=== PATIENT | male | born 1930 | race Caucasian/White ===

== ENCOUNTER 2016-09-05 11:22 | Emergency (ER) | payer OTHER ==
--- NOTE | 2016-09-05 12:27 | PDOC ---
History of Present Illness - General Chief Complaint: Injury Stated Complaint: FALL,LEFT KNEE INJURY Time Seen by Provider: 09/05/16 11:42 History Source: Patient Exam Limitations: No Limitations - History of Present Illness Initial Comments: 09/05/16 12:20 Patient is an 86M with a history of L knee replacement, [place], pacemaker and possible afib here today complaining of L knee pain after a fall. The fall was 5 days ago, and patient states that he tripped while trying to walk through a restaurant. He states that he injured his knee then, but was able to continue walking afterwards. He denies any inciting event before falling, including dizziness, shortness of breath, chest pain, diaphoresis and loss of motor function. He is coming in today because he's worried that his left knee is infected after he noticed a yellow discharge. He is still able to walk on the knee today, and denies nausea, vomiting, fevers and chills. He says the knee is painful and warm. He also endorses a headache since the fall, but denies any head wound and is unsure if he hit his head at all. Patient has had a right eye droop since 20 years old. Past History - Past Medical History Allergies/Adverse Reactions: Allergies Allergy/AdvReac Type Severity Reaction Status Date / Time shellfish derived Allergy Verified 09/05/16 11:46 Home Medications: Ambulatory Orders Albuterol Sulfate Inhaler - [Ventolin Hfa Inhaler -] 1 - 2 inh PO PRN PRN Apixaban [Eliquis] 5 mg PO DAILY 09/05/16 Aspirin [ASA -] 81 mg PO DAILY 09/05/16 Benzonatate 100 mg PO PRN PRN 09/05/16 Cholecalciferol (Vitamin D3) [Vitamin D3] 2,000 unit PO DAILY 09/05/16 Febuxostat [Uloric -] 80 mg PO PRN PRN 09/05/16 Furosemide [Lasix] 40 mg PO DAILY 09/05/16 Hydroxychloroquine So4 [Plaquenil -] 100 mg PO DAILY 09/05/16 Losartan Potassium 25 mg PO BID 09/05/16 Metformin HCl 500 mg PO BID 09/05/16 Multivitamins [Tab-A-Vit -] 1 tab PO DAILY 09/05/16 Omeprazole 20 mg PO BID 09/05/16 Potassium Chloride 10 meq PO DAILY 09/05/16 Prednisone 5 mg PO DAILY 09/05/16 Sulfamethoxazole/Trimethoprim [Bactrim Ds -] 1 tab PO BID #14 tablet 09/05/16 Tramadol HCl 50 mg PO QID PRN 09/05/16 Review of Systems - Review of Systems Comments:: 09/05/16 12:28 GENERAL/CONSTITUTIONAL: No fever or chills. No weakness. HEAD, EYES, EARS, NOSE AND THROAT: No change in vision. No cough CARDIOVASCULAR: No chest pain or shortness of breath RESPIRATORY: No cough, or wheezing GASTROINTESTINAL: No nausea, vomiting, diarrhea or constipation. GENITOURINARY: No dysuria, frequency, or change in urination. MUSCULOSKELETAL: L knee pain. Lower back pain. SKIN: No rash NEUROLOGIC: No headache, vertigo, loss of consciousness, or change in strength/ sensation. HEMATOLOGIC/LYMPHATIC: Easy bruising and easy bleeding *Physical Exam - Physical Exam Comments: 09/05/16 12:30 GENERAL: Awake, alert, and fully oriented, in no acute distress HEAD: No signs of trauma, normocephalic, atraumatic EYES: PERRLA, EOMI, sclera anicteric, conjunctiva clear ENT: Auricles normal inspection, hearing grossly normal, nares patent, Moist mucosa NECK: Normal ROM, supple, LUNGS: No distress, speaks full sentences, clear to auscultation bilaterally HEART: Regular rate and rhythm, normal S1 and S2, no murmurs, rubs or gallops, peripheral pulses normal and equal bilaterally. ABDOMEN: Soft, nontender, normoactive bowel sounds. No guarding, no rebound. No masses EXTREMITIES: 4x4cm area of erythema overlying left knee, normal range of motion , tender to palpation, warm to touch NEUROLOGICAL: Right eye droop. Normal speech. SKIN: Warm, Dry, normal turgor, no rashes or lesions noted. ED Treatment Course - LABORATORY CBC & Chemistry Diagram: 09/05/16 12:15 09/05/16 12:15 - RADIOLOGY Radiology Studies Ordered: Category Date Time Status HEAD CT WITHOUT CONTRAST [CT] Stat CT Scan 09/05/16 11:44 Taken KNEE 3 POS-LEFT [RAD] Stat Radiology 09/05/16 11:44 Ordered Medical Decision Making - Medical Decision Making 09/05/16 13:17 Patient is an 86M with history of afib, stroke, and s/p pacemaker here today complaining of a mechanical fall 5 days ago. Vital signs stable and normal. Ultrasound shows cobblestoning around knee with no pockets of fluid. Differential diagnosis includes, but is not limited to: knee sprain, cellulitis and septic joint. Cellulitis is much more likely given patients ability to ambulate with unchanged amount of assistance. 09/05/16 13:51 CBC, CMP normal. X-rays normal. Vital signs normal and stable. Will discharge on bactrim ds BID for 7 days. *DC/Admit/Observation/Transfer Diagnosis at time of Disposition: Cellulitis Qualifiers: Site of cellulitis: extremity Site of cellulitis of extremity: lower extremity Laterality: left Qualified Code(s): L03.116 - Cellulitis of left lower limb - Discharge Dispostion Disposition: HOME Condition at time of disposition: Good Admit: No - Prescriptions Prescriptions: Sulfamethoxazole/Trimethoprim [Bactrim Ds -] 1 tab PO BID #14 tablet - Referrals Referrals: Freddy Tee MD [Staff Physician] - - Patient Instructions Printed Discharge Instructions: DI for Cellulitis -- Adult - Attestations Scribe Attestion: 09/05/16 13:50 I, Dr. Raul Villanueva, attest that this document has been prepared under my direction and personally reviewed by me in its entirety. I further attest, that it accurately reflects all work, treatment, procedures and medical decision -making performed by me.
[2016-09-05 12:45] VITALS: BP 149/83; PULSE 71; TEMP 98.3; BMI 30.9
--- NOTE | 2016-09-05 13:10 | PDOC ---
Attending Attestation - Resident Resident Name: SorenagnieszkaRaul - ED Attending Attestation I have performed the following: I have examined & evaluated the patient, The case was reviewed & discussed with the resident, I agree w/resident's findings & plan, Exceptions are as noted - HPI HPI: 09/05/16 13:07 86 year old male with history of CAD, pacemaker, left knee replacement p/w left knee pain after falling 5 days ago. Hit his left knee. Started to develop left knee redness and swelling. Denies fever. Patient reports able to fully range the left knee. - Physicial Exam PE: 09/05/16 13:10 GENERAL: Awake, alert, and fully oriented, in no acute distress. HEAD: No signs of trauma EYES: PERRLA, EOMI, sclera anicteric, conjunctiva clear ENT: Auricles normal inspection, hearing grossly normal, nares patent, oropharynx clear without exudates. NECK: Normal ROM, supple, no lymphadenopathy, JVD, or masses LUNGS: Breath sounds equal, clear to auscultation bilaterally. No wheezes, and no crackles HEART: Regular rate and rhythm, normal S1 and S2, no murmurs, rubs or gallops ABDOMEN: Soft, nontender, normoactive bowel sounds. No guarding, no rebound. No masses EXTREMITIES: Normal range of motion, no edema. No clubbing or cyanosis. No cords, erythema, or tenderness LLE: FROM Range with no pain or difficulty. Ambulates with assistance. Approximately 4x4 cm erythema overlying left anterior knee with very mild central drainage. NO fluctance appreciated. NO induration. NEUROLOGICAL: Cranial nerves II through XII grossly intact. Normal speech, normal gait SKIN: Warm, Dry, normal turgor, no rashes or lesions noted. - Medical Decision Making 09/05/16 13:11 Vital Signs Temp Pulse Resp BP Pulse Ox 98.3 F 71 20 149/83 95 09/05/16 11:32 09/05/16 11:32 09/05/16 11:32 09/05/16 11:32 09/05/16 11:32 Bedside ultrasound demonstrates no pockets of fluids for drainage. This is much more likely to be cellulitis over the left knee from scraping, and much less likely to be septic joint. Will send labs. Patient will need antibiotics. If workup is negative and demonstrates no significant abnormalities, pt can be discharged with PO antibiotics, likely bactrim. Heart Score/ECG Review #1 ECG reviewed & interpreted by me at: 11:50 09/05/16 14:09 Atrial paced rhythm 70 with prolonged AV conduction, QTC 423 msec, Q wave III, no std/tomas
[2016-09-05 13:21] LABS: INR 1.14 (0.82-1.09); PROTHROMBIN TIME (PATIENT) 12.7 SEC (10.2-13.0)
[2016-09-05 13:25] LABS: ALBUMIN 3.9 g/dl (3.5-5.0); ALK PHOS 50 U/L (32-92); ANION GAP 9 (8-16); BILIRUBIN,TOTAL 0.6 mg/dl (0.2-1.0); CALCIUM 9.4 mg/dl (8.4-10.2); CO2 28 mmol/L (22-28); CREATININE 0.7 mg/dl (0.6-1.3); GLUCOSE,RANDOM 136 mg/dl (74-106); SGOT/AST 18 U/L (10-42); SGPT/ALT 16 U/L (10-40); TOT PROT 6.9 g/dl (6.4-8.3)
[2016-09-05 13:40] LABS: BASOPHIL 0.8 % (0-2.0); EOSINOPHIL 1.6 % (0-4.5); MCH 31.2 pg (25.7-33.7); MEAN CELL VOLUME 89.1 fl (80-96); MEAN PLT VOLUME 11.9 fl (7.5-11.1); NEUTROPHILS 84.3 % (42.8-82.8); PLATELET COUNT 193 K/MM3 (134-434); RDW 12.7 % (11.9-15.9)
[2016-09-05 18:19] LABS: C-REACTIVE PROTEIN 0.4 MG/DL (0.00-0.3); ERYTHROCYTE SEDIMENTATION RATE 5 mm/hr (0-20)
--- NOTE | 2016-09-07 19:10 | EKG ---
Test Reason : Blood Pressure : / mmHG Vent. Rate : 070 BPM Atrial Rate : 070 BPM P-R Int : 312 ms QRS Dur : 098 ms QT Int : 392 ms P-R-T Axes : -07 -10 013 degrees QTc Int : 423 ms Atrial-paced rhythm with prolonged AV conduction SEPTAL INFARCT , AGE UNDETERMINED INFERIOR INFARCT , AGE UNDETERMINED ABNORMAL ECG NO PREVIOUS ECGS AVAILABLE Confirmed by LESLY NOVAK MD ([id number]) on 09/07/2016 7:10:02 PM Referred By: GURDEEP Confirmed By:LESLY NOVAK MD
== END 2016-09-05 14:32 | disposition home or self-care (01) ==
LOC: FER 11:22
DX: L03.116 Cellulitis of left lower limb (principal); I25.2 Old myocardial infarction; Z95.0 Presence of cardiac pacemaker; Z96.652 Presence of left artificial knee joint; Z91.013 Allergy to seafood; Z79.82 Long term (current) use of aspirin; Z79.84 Long term (current) use of oral hypoglycemic drugs
CPT/HCPCS: 36415; 70450-TC; 73562-TC-LT; 80053; 85025; 85610; 85651; 86140; 87040; 87070; 87186; 87205; 93005; 99283-25

== ENCOUNTER 2018-06-12 18:25 | Inpatient (IN) | payer OTHER ==
[2018-06-12] MEDS ORDERED: ACETAMINOPHEN 1000 MG/100 ML VIAL (NON FORMULARY) IVPB ONE (18:49)
[2018-06-12] MEDS ORDERED: ACETAMINOPHEN INJECTION 100 ML IVPB ONE (19:31)
[2018-06-12 19:39] LABS: BASO % 0.4 % (0-2.0); EOS % 0.6 % (0-4.5); HEMATOCRIT 42.4 % (35.4-49); HEMOGLOBIN 14.3 GM/dl (11.7-16.9); LYMPH % 6.9 % (8-40); MCH 32.2 pg (25.7-33.7); MCHC 33.7 g/dl (32.0-35.9); MEAN CELL VOLUME 95.4 fl (80-96); MEAN PLT VOLUME 11.3 fl (7.5-11.1); MONO % 8.1 % (3.8-10.2); PLATELET COUNT 160 K/MM3 (134-434); RBC 4.44 M/mm3 (4.00-5.60); RDW 12.7 % (11.9-15.9); WHITE BLOOD COUNT 13.6 K/mm3 (4.0-10.8)
[2018-06-12 19:55] LABS: ALBUMIN 3.4 g/dl (3.4-5.0); ALK PHOS 50 U/L (45-117); ANION GAP 18 MMOL/L (8-16); BILIRUBIN,TOTAL 0.9 mg/dl (0.2-1); BLOOD UREA NITROGEN 24 mg/dl (7-18); CHLORIDE 100 mmol/L (98-107); CO2 19 mmol/L (21-32); CREATININE 0.8 mg/dl (0.55-1.3); GLUCOSE,RANDOM 155 mg/dl (74-106); SGOT/AST 21 U/L (15-37); SGPT/ALT 17 U/L (13-61); SODIUM 137 mmol/L (136-145); TOT PROT 6.2 g/dl (6.4-8.2)
[2018-06-12 19:57] LABS: ACTIVATED PTT 29.7 SECONDS (25.2-36.5)
--- NOTE | 2018-06-12 19:59 | PDOC ---
Documentation entered by Justa Zazueta SCRIBE, acting as scribe for Barbara Smalls MD. Barbara Smalls MD: This documentation has been prepared by the Marbin holguin Xhesika, SCRIBE, under my direction and personally reviewed by me in its entirety. I confirm that the documentation accurately reflects all work, treatment, procedures, and medical decision making performed by me. History of Present Illness - General Chief Complaint: Pain Stated Complaint: ABD PAIN,CHILLS Time Seen by Provider: 06/12/18 19:08 History Source: Patient, Family Exam Limitations: No Limitations - History of Present Illness Initial Comments: 06/12/18 19:34 The patient is a 87 year old male, from [facility], with a significant past medical history of CAD, Stroke, Prostate Ca, Pneumonia, afib, pacemaker, left knee replacement who presents to the emergency department with daughter for chills. As per daughter, she received a call that the patient was downstairs confused, weak, had chills, cough and abdominal pain. The daughter states that the patient was at his baseline yesterday. As per daughter, the patient fell in the bathroom and sprained his L wrist, however, he is still complaining of L wrist pain today in the ED. The patient denies chest pain, shortness of breath, headache or dizziness. The patient denies fever, nausea, vomit, diarrhea or constipation. The patient denies dysuria, frequency, urgency or hematuria. Allergies:NKDA. Shellfish derived Past surgical history: left knee replacement Social history: None reported Past History - Past Medical History Allergies/Adverse Reactions: Allergies Allergy/AdvReac Type Severity Reaction Status Date / Time shellfish derived Allergy Vomiting Verified 06/12/18 18:30 Home Medications: Ambulatory Orders Apixaban [Eliquis] 5 mg PO DAILY 09/05/16 Aspirin [ASA -] 81 mg PO DAILY 09/05/16 Cholecalciferol (Vitamin D3) [Vitamin D3] 2,000 unit PO DAILY 09/05/16 Furosemide [Lasix] 60 mg PO DAILY 09/05/16 Losartan Potassium 25 mg PO BID 09/05/16 Multivitamins [Tab-A-Vit -] 1 tab PO DAILY 09/05/16 metFORMIN HCL [Metformin HCl] 500 mg PO BID 09/05/16 Cholecalciferol (Vitamin D3) [Vitamin D] 2,000 unit PO DAILY 06/12/18 Metoprolol Succinate 200 mg PO DAILY 06/12/18 Pantoprazole Sodium 40 mg PO DAILY 06/12/18 Spironolactone 25 mg PO DAILY 06/12/18 predniSONE [Deltasone -] 2.5 mg PO DAILY 06/12/18 Cardiac Disorders: Yes COPD: No GI Disorders: Yes (DIVERTICULITIS) HTN: Yes Hypercholesterolemia: Yes Other medical history: STROKE LEFT SIDE 2013, PROSTATE CA 2015, - Surgical History Appendectomy: Yes Cardiac Surgery: Yes (pacemaker) Cholecystectomy: Yes - Suicide/Smoking/Psychosocial Hx Smoking History: Never smoked Have you smoked in the past 12 months: No Information on smoking cessation initiated: No Hx Alcohol Use: No Drug/Substance Use Hx: No Substance Use Type: None Review of Systems - Review of Systems Able to Perform ROS?: Yes Comments:: 06/12/18 19:34 GENERAL/CONSTITUTIONAL:(+) chills. No fever. No weakness. HEAD, EYES, EARS, NOSE AND THROAT: No change in vision. No ear pain or discharge. No sore throat. CARDIOVASCULAR: No chest pain or shortness of breath. RESPIRATORY: (+) chronic cough. No wheezing, or hemoptysis. GASTROINTESTINAL: No nausea, vomiting, diarrhea or constipation. GENITOURINARY: No dysuria, frequency, or change in urination. MUSCULOSKELETAL: (+) Abdominal pain. (+) L wrist pain. No neck or back pain. SKIN: No rash NEUROLOGIC: No headache, vertigo, loss of consciousness, or change in strength/ sensation. ENDOCRINE: No increased thirst. No abnormal weight change. HEMATOLOGIC/LYMPHATIC: No anemia, easy bleeding, or history of blood clots. ALLERGIC/IMMUNOLOGIC: No hives or skin allergy. All Other Systems: Reviewed and Negative *Physical Exam - Vital Signs Last Vital Signs Temp Pulse Resp BP Pulse Ox 102.1 F H 113 H 20 102/66 94 L 06/12/18 18:30 06/12/18 18:30 06/12/18 18:30 06/12/18 18:30 06/12/18 18:30 - Physical Exam Comments: 06/12/18 19:35 GENERAL: Awake, alert, and fully oriented, in no acute distress HEAD: No signs of trauma EYES: PERRLA, EOMI, sclera anicteric, conjunctiva clear ENT: Auricles normal inspection, hearing grossly normal, nares patent, oropharynx clear without exudates. Moist mucosa NECK: Normal ROM, supple, no lymphadenopathy, JVD, or masses LUNGS: Breath sounds equal, clear to auscultation bilaterally. No wheezes, and no crackles HEART: Regular rate and rhythm, normal S1 and S2, no murmurs, rubs or gallops ABDOMEN: Soft, nontender, normoactive bowel sounds. No guarding, no rebound. No masses EXTREMITIES: (+) Trace pitting edema to mid calf bilaterally. Normal range of motion. No clubbing or cyanosis. No cords, erythema, or tenderness NEUROLOGICAL: Cranial nerves II through XII grossly intact. Normal speech. ED Treatment Course - LABORATORY CBC & Chemistry Diagram: 06/12/18 19:15 06/12/18 19:15 - ADDITIONAL ORDERS Additional order review: Laboratory Results 06/12/18 18:45 Urine Color Yellow Urine Appearance Clear Urine pH 5.5 Urine Protein Negative Urine Glucose (UA) Negative Urine Ketones Negative Urine Blood Negative Urine Nitrite Negative Urine Bilirubin Negative Urine Urobilinogen 0.2 Ur Leukocyte Esterase Negative - Medications Given in the ED: ED Medications Discontinued Medications Generic Name Dose Route Start Last Admin Trade Name Bettie PRN Reason Stop Dose Admin Acetaminophen 1,000 mg 06/12/18 18:49 06/12/18 19:35 Ofirmev Injection - IVPB 06/12/18 18:50 1,000 mg ONCE ONE Administration Medical Decision Making - Medical Decision Making 06/12/18 19:57 Pt presents to the ED after an episode of confusion and subjective fever. He is now oriented and without complaints, although he remains febrile and slightly hypoxic. Will do septic work up, give fever control, start antibiotics and admit to medicine for contineud management. *DC/Admit/Observation/Transfer Diagnosis at time of Disposition: Sepsis Qualifiers: Sepsis type: sepsis due to unspecified organism Qualified Code(s): A41.9 - Sepsis, unspecified organism - Discharge Dispostion Condition at time of disposition: Fair Decision to Admit order: Yes - Referrals - Patient Instructions - Post Discharge Activity
[2018-06-12 20:02] LABS: INR 1.53 (0.82-1.09)
[2018-06-12 20:52] LABS: VENOUS PC02 28.9 mmHg (41-51); VENOUS PH 7.51 (7.31-7.41); VENOUS PO2 48.8 mmHg (30-40)
[2018-06-12] MEDS ORDERED: CEFTRIAXONE 1,000 MG in DEXTROSE 5%-WATER - 50 ML IVPB ONE (21:27)
[2018-06-12] MEDS ORDERED: AZITHROMYCIN IVPB 500 MG in DEXTROSE 5%-WATER - 250 ML IVPB ONE (21:27)
[2018-06-12] MEDS ORDERED: SODIUM CHLORIDE 0.9% 500 ML INFUS.BAG IV ONE (21:36)
[2018-06-12] MEDS ORDERED: VANCOMYCIN 1,000 MG in DEXTROSE 5%-WATER - 250 ML IVPB ONE (21:37)
[2018-06-12] MEDS ORDERED: PIPERACILLIN/TAZOB 3.375 GM 3.375 GM in DEXTROSE 5%-WATER - 50 ML IVPB ONE (21:37)
[2018-06-12] MEDS ORDERED: AZITHROMYCIN 500 MG VIAL IVPB ONE (21:38)
[2018-06-12] MEDS ORDERED: cefTRIAXone SODIUM 1 GM VIAL ONE (21:38)
[2018-06-12 21:39] LABS: PLATELET ESTIMATE ADEQUATE
[2018-06-12] MEDS ORDERED: PIPERACILLIN/TAZOBACTAM 3.375 GM VIAL IVPB ONE (21:45)
[2018-06-12] MEDS ORDERED: VANCOMYCIN 1,000 MG VIAL (RESTRICTED TO ID ONLY) ONE (21:45)
--- NOTE | 2018-06-12 23:06 | HP ---
CHIEF COMPLAINT:cough, chills PCP: History obtained from EMR and ER staff as patient is nonverbal HISTORY OF PRESENT ILLNESS: 87 year old male, from [facility] brought in to hospital because he was confused, weak, w/ chills, cough, and abdominal pain as per daughter. As per daughter, the patient fell in the bathroom and injured left wrist. ER course was notable for: (1) zosyn (2) vancomycin (3) IV fluids Recent Travel: unknown PAST MEDICAL HISTORY: AD, Stroke, Prostate Ca, Pneumonia, afib, pacemaker, PAST SURGICAL HISTORY: left knee replacement, pacemaker placement Social History: Smoking:no Alcohol: no Drugs: no Family History: unknown Allergies shellfish derived Allergy (Verified 06/12/18 18:30) Vomiting HOME MEDICATIONS: Home Medications Medication Instructions Recorded Apixaban [Eliquis] 5 mg PO DAILY 09/05/16 Aspirin [ASA -] 81 mg PO DAILY 09/05/16 Cholecalciferol (Vitamin D3) 2,000 unit PO DAILY 09/05/16 [Vitamin D3] Furosemide [Lasix] 60 mg PO DAILY 09/05/16 Losartan Potassium 25 mg PO BID 09/05/16 Multivitamins [Tab-A-Vit -] 1 tab PO DAILY 09/05/16 metFORMIN HCL [Metformin HCl] 500 mg PO BID 09/05/16 Cholecalciferol (Vitamin D3) 2,000 unit PO DAILY 06/12/18 [Vitamin D] Metoprolol Succinate 200 mg PO DAILY 06/12/18 Pantoprazole Sodium 40 mg PO DAILY 06/12/18 Spironolactone 25 mg PO DAILY 06/12/18 predniSONE [Deltasone -] 2.5 mg PO DAILY 06/12/18 REVIEW OF SYSTEMS- unable to obtain as patient is noncooperative with interview PHYSICAL EXAMINATION Vital Signs - 24 hr 06/12/18 06/12/18 06/12/18 18:30 19:30 20:23 Temperature 102.1 F H Pulse Rate 113 H Pulse Rate [ 92 H 80 Apical] Respiratory 20 12 20 Rate Blood Pressure 102/66 Blood Pressure 100/62 100/63 [Right Arm] O2 Sat by Pulse 94 L 95 95 Oximetry (%) 06/12/18 06/12/18 20:37 21:10 Temperature 100.1 F H Pulse Rate Pulse Rate [ 84 80 Apical] Respiratory 21 H 22 H Rate Blood Pressure Blood Pressure 93/65 [Right Arm] O2 Sat by Pulse 97 94 L Oximetry (%) GENERAL: Awake, alert,, disoriented, follows commands HEAD: Normal with no signs of trauma. EYES: Pupils equal, round and reactive to light, extraocular movements intact, sclera anicteric, conjunctiva clear. No lid lag. EARS, NOSE, THROAT: Ears normal, nares patent, oropharynx clear without exudates. Moist mucous membranes. NECK: Normal range of motion, supple without lymphadenopathy, JVD, or masses. LUNGS: Breath sounds equal, clear to auscultation bilaterally. No wheezes, and no crackles. No accessory muscle use. HEART: irregularly irregular rhythm ABDOMEN: Soft, nontender, not distended, normoactive bowel sounds, no guarding, no rebound, no masses. No hepatomegaly or splenomegaly. MUSCULOSKELETAL: Normal range of motion at all joints. No bony deformities or tenderness. No CVA tenderness. UPPER EXTREMITIES: 2+ pulses, warm, well-perfused. No cyanosis. No clubbing. No peripheral edema. LOWER EXTREMITIES: 2+ pulses, warm, well-perfused. No calf tenderness. No peripheral edema. NEUROLOGICAL: Cranial nerves II-XII intact. PSYCHIATRIC: ams, dementia, noncooperative SKIN: b/l chronic venous stasis changes Laboratory Results - last 24 hr 06/12/18 06/12/18 06/12/18 18:45 19:15 19:15 WBC 13.6 H RBC 4.44 Hgb 14.3 Hct 42.4 MCV 95.4 MCH 32.2 MCHC 33.7 RDW 12.7 Plt Count 160 MPV 11.3 H Absolute Neuts (auto) 11.4 Neutrophils % 84.0 H Lymphocytes % 6.9 L Monocytes % 8.1 Eosinophils % 0.6 Basophils % 0.4 Platelet Estimate Adequate Platelet Comment Moderate large plt PT with INR 17.0 H INR 1.53 H D PTT (Actin FS) 29.7 VBG pH POC VBG pCO2 POC VBG pO2 VBG HCO3 VBG O2 Sat (Eduar) VBG Base Excess Sodium Potassium Chloride Carbon Dioxide Anion Gap BUN Creatinine Creat Clearance w eGFR Random Glucose Lactic Acid Calcium Total Bilirubin AST ALT Alkaline Phosphatase Troponin I Total Protein Albumin Urine Color Yellow Urine Appearance Clear Urine pH 5.5 Urine Protein Negative Urine Glucose (UA) Negative Urine Ketones Negative Urine Blood Negative Urine Nitrite Negative Urine Bilirubin Negative Urine Urobilinogen 0.2 Ur Leukocyte Esterase Negative 06/12/18 06/12/18 06/12/18 19:15 19:15 19:15 WBC RBC Hgb Hct MCV MCH MCHC RDW Plt Count MPV Absolute Neuts (auto) Neutrophils % Lymphocytes % Monocytes % Eosinophils % Basophils % Platelet Estimate Platelet Comment PT with INR INR PTT (Actin FS) VBG pH 7.51 H POC VBG pCO2 28.9 L POC VBG pO2 48.8 H VBG HCO3 22.8 L VBG O2 Sat (Eduar) 86.6 H VBG Base Excess 2.0 Sodium 137 Potassium 4.0 Chloride 100 Carbon Dioxide 19 L Anion Gap 18 H BUN 24 H Creatinine 0.8 Creat Clearance w eGFR 91.87 Random Glucose 155 H Lactic Acid 2.9 H* Calcium 9.0 Total Bilirubin 0.9 AST 21 ALT 17 Alkaline Phosphatase 50 Troponin I Total Protein 6.2 L Albumin 3.4 Urine Color Urine Appearance Urine pH Urine Protein Urine Glucose (UA) Urine Ketones Urine Blood Urine Nitrite Urine Bilirubin Urine Urobilinogen Ur Leukocyte Esterase 06/12/18 19:15 WBC RBC Hgb Hct MCV MCH MCHC RDW Plt Count MPV Absolute Neuts (auto) Neutrophils % Lymphocytes % Monocytes % Eosinophils % Basophils % Platelet Estimate Platelet Comment PT with INR INR PTT (Actin FS) VBG pH POC VBG pCO2 POC VBG pO2 VBG HCO3 VBG O2 Sat (Eduar) VBG Base Excess Sodium Potassium Chloride Carbon Dioxide Anion Gap BUN Creatinine Creat Clearance w eGFR Random Glucose Lactic Acid Calcium Total Bilirubin AST ALT Alkaline Phosphatase Troponin I < 0.03 Total Protein Albumin Urine Color Urine Appearance Urine pH Urine Protein Urine Glucose (UA) Urine Ketones Urine Blood Urine Nitrite Urine Bilirubin Urine Urobilinogen Ur Leukocyte Esterase Imaging studies reviewed ASSESSMENT/PLAN: #Sepsis secondary to community acquired pneumonia with lactic acidosis. Possible infiltrate in right lung base on cxr. VS stable and can go to med/ surg. -blood cultures x2 -sputum culture -urine legionella ag -procalcitonin -ceftiaxone IV -axithromycin IV -supplemental oxygen via NC -hold anti - HTN meds at this time as BP is borderline low #AMS- underlying dementia? May also be metabolic encephalopathy from underlying infection -bed rest -fall precautions -avoid sedatives -head CT to r/o bleed- pt on Eliquis w/ possible fall -PT #Afib - also LBBB on EKG, probably old. AICD seen. Trop negative. No reported chest pain. -c/w Eliquis 2.5 mg po bid -metoprolol succinate 200mg po daily -repeat trop -pacemaker interrogation #Left wrist injury- no gross fractures seen on xray -f/u official left wrist xray read #DM - -send a1c -insulin sliding scale #DVT ppx -on Eliquis already Visit type - Emergency Visit Emergency Visit: Yes ED Registration Date: 06/12/18 Care time: The patient presented to the Emergency Department on the above date and was hospitalized for further evaluation of their emergent condition. - New Patient This patient is new to me today: Yes Date on this admission: 06/13/18 - Critical Care Critical Care patient: No
[2018-06-12] MEDS ORDERED: SODIUM CHLORIDE 1,000 ML IV SCH (23:15)
--- NOTE | 2018-06-13 08:44 | CON.CARD ---
Consult Consult Specialty:: Cardiology Reason for Consultation:: fall/af - History of Present Illness History of Present Illness: HISTORY OF PRESENT ILLNESS: 87 year old male, from [facility] brought in to hospital because he was confused, weak, w/ chills, cough, and abdominal pain as per daughter. As per daughter, the patient fell in the bathroom and injured left wrist. ER course was notable for: (1) zosyn (2) vancomycin (3) IV fluids Recent Travel: unknown PAST MEDICAL HISTORY: AD, Stroke, Prostate Ca, Pneumonia, afib, pacemaker, PAST SURGICAL HISTORY: left knee replacement, pacemaker placement - History Source History Provided By: Patient, Medical Record - Past Medical History Cardio/Vascular: Yes: AFIB, CAD, CHF, HTN - Alcohol/Substance Use Hx Alcohol Use: No - Smoking History Smoking history: Never smoked Have you smoked in the past 12 months: No Home Medications - Allergies Allergies/Adverse Reactions: Allergies Allergy/AdvReac Type Severity Reaction Status Date / Time shellfish derived Allergy Vomiting Verified 06/12/18 18:30 - Home Medications Home Medications: Ambulatory Orders Apixaban [Eliquis] 5 mg PO DAILY 09/05/16 Aspirin [ASA -] 81 mg PO DAILY 09/05/16 Cholecalciferol (Vitamin D3) [Vitamin D3] 2,000 unit PO DAILY 09/05/16 Furosemide [Lasix] 60 mg PO DAILY 09/05/16 Losartan Potassium 25 mg PO BID 09/05/16 Multivitamins [Tab-A-Vit -] 1 tab PO DAILY 09/05/16 metFORMIN HCL [Metformin HCl] 500 mg PO BID 09/05/16 Cholecalciferol (Vitamin D3) [Vitamin D] 2,000 unit PO DAILY 06/12/18 Metoprolol Succinate 200 mg PO DAILY 06/12/18 Pantoprazole Sodium 40 mg PO DAILY 06/12/18 Spironolactone 25 mg PO DAILY 06/12/18 predniSONE [Deltasone -] 2.5 mg PO DAILY 06/12/18 Review of Systems Unable to obtain ROS, reason: poor informant - Review of Systems Constitutional: reports: No Symptoms Eyes: reports: No Symptoms HENT: reports: No Symptoms Neck: reports: No Symptoms Cardiovascular: reports: No Symptoms Respiratory: reports: No Symptoms Gastrointestinal: reports: No Symptoms Genitourinary: reports: No Symptoms Breasts: reports: No Symptoms Reported Musculoskeletal: reports: No Symptoms Integumentary: reports: No Symptoms Neurological: reports: No Symptoms Endocrine: reports: No Symptoms Hematology/Lymphatic: reports: No Symptoms Psychiatric: reports: No Symptoms Vital Signs: Vital Signs Temperature 98.3 F 06/13/18 05:06 Pulse Rate 76 06/13/18 05:06 Respiratory Rate 20 06/13/18 05:06 Blood Pressure 114/70 06/13/18 05:06 O2 Sat by Pulse Oximetry (%) 96 06/13/18 05:20 Constitutional: Yes: Well Nourished, No Distress, Calm Eyes: Yes: WNL, Conjunctiva Clear, EOM Intact HENT: Yes: WNL, Atraumatic, Normocephalic Neck: Yes: WNL, Supple, Trachea Midline Respiratory: Yes: WNL, Regular, CTA Bilaterally Gastrointestinal: Yes: WNL, Normal Bowel Sounds Renal/: Yes: WNL Cardiovascular: Yes: Pulse Irregular Heart Sounds: Yes: S1, S2 Musculoskeletal: Yes: WNL Extremities: Yes: WNL Integumentary: Yes: WNL Neurological: Yes: WNL, Alert, Oriented ...Motor Strength: WNL Psychiatric: Yes: WNL, Alert, Oriented - Other Data Labs, Other Data: CBC, BMP 06/12/18 19:15 06/12/18 19:15 INR, PTT INR 1.53 (0.82-1.09) H D 06/12/18 19:15 Troponin, BNP 06/12/18 19:15 Troponin I < 0.03 Troponin, BNP 06/12/18 19:15 Troponin I < 0.03 Imaging - Results Chest X-ray: Image Reviewed (no i/e) EKG: Image Reviewed (af LBBB) Problem List - Problems (1) Sepsis Code(s): A41.9 - SEPSIS, UNSPECIFIED ORGANISM Qualifiers: Sepsis type: sepsis due to unspecified organism Qualified Code(s): A41.9 - Sepsis, unspecified organism (2) Cellulitis Code(s): L03.90 - CELLULITIS, UNSPECIFIED Qualifiers: Site of cellulitis: extremity Site of cellulitis of extremity: lower extremity Laterality: left Qualified Code(s): L03.116 - Cellulitis of left lower limb Assessment/Plan Imp; af, ASHD, sepsis, dementia, dm, htn, hlp, s/p PPM -patient does not know 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 Admitted with debbie in [place] and fall. Plan; abx, cont AC with Eliqulesa, PPM interrogation, ECHO. Coverage for dr. Cheema.
--- NOTE | 2018-06-13 08:44 | EKG ---
Test Reason : Blood Pressure : / mmHG Vent. Rate : 085 BPM Atrial Rate : 093 BPM P-R Int : 000 ms QRS Dur : 152 ms QT Int : 418 ms P-R-T Axes : 000 -43 077 degrees QTc Int : 497 ms POOR DATA QUALITY, INTERPRETATION MAY BE ADVERSELY AFFECTED ATRIAL FIBRILLATION WITH PREMATURE VENTRICULAR OR ABERRANTLY CONDUCTED COMPLEXES LEFT AXIS DEVIATION LEFT BUNDLE BRANCH BLOCK ABNORMAL ECG Confirmed by BRITTANY KATZ, IVAN ([id number]) on 06/13/2018 8:44:05 AM Referred By: Confirmed By:IVAN SOTO MD
[2018-06-13 09:05] LABS: HEMATOCRIT 38.9 % (35.4-49); HEMOGLOBIN 12.9 GM/dl (11.7-16.9); MCH 32.1 pg (25.7-33.7); MCHC 33.2 g/dl (32.0-35.9); MEAN CELL VOLUME 96.9 fl (80-96); MEAN PLT VOLUME 11.8 fl (7.5-11.1); PLATELET COUNT 126 K/MM3 (134-434); RBC 4.01 M/mm3 (4.00-5.60); RDW 12.6 % (11.9-15.9)
[2018-06-13] MEDS: predniSONE 5 MG TABLET (UD) PO SCH (09:37)
[2018-06-13] MEDS: PANTOPRAZOLE 40 MG TABLET (FP) PO SCH (09:37)
[2018-06-13] MEDS: AZITHROMYCIN IVPB 500 MG/250 ML BAG IVPB SCH (09:47)
[2018-06-13] MEDS ORDERED: APIXABAN 2.5 MG TABLET PO SCH (10:00)
[2018-06-13] MEDS ORDERED: SPIRONOLACTONE 25 MG TABLET (FP) PO SCH (10:00)
[2018-06-13] MEDS ORDERED: APIXABAN 5 MG TABLET PO SCH (10:00)
[2018-06-13] MEDS ORDERED: HEPARIN NA (PORCINE) 5,000 UNITS/ML 1ML VIAL SQ SCH (10:00)
[2018-06-13] MEDS ORDERED: ASPIRIN 81 MG CHEWABLE TABLETS PO SCH (10:00)
[2018-06-13] MEDS ORDERED: CEFTRIAXONE 1 GM in DEXTROSE 5%-WATER - 50 ML IVPB SCH (10:00)
[2018-06-13] MEDS ORDERED: MULTIVITAMINS (DAILY MVI) TABLET (FP) PO SCH (10:00)
[2018-06-13 11:17] LABS: ANION GAP 14 MMOL/L (8-16); BLOOD UREA NITROGEN 18 mg/dl (7-18); CALCIUM 8.5 mg/dl (8.5-10); CHLORIDE 104 mmol/L (98-107); CO2 21 mmol/L (21-32); CREATININE 0.6 mg/dl (0.55-1.3); GLUCOSE,RANDOM 135 mg/dl (74-106); MAGNESIUM 1.6 mg/dL (1.8-2.4); POTASSIUM 3.9 mmol/L (3.5-5.1); SODIUM 139 mmol/L (136-145)
[2018-06-13] MEDS ORDERED: MAGNESIUM SULF 50% (8.12 MEQ/2 ML-1 GM VIAL) IVPB ONE (11:35)
--- NOTE | 2018-06-13 11:40 | PN ---
Physical Exam: SUBJECTIVE: Patient seen and examined, awake, alert, poor historian, lactic trending down repeat CT head no interval change, focal hyperdensity also faintly visualized in 09/05/16 CT. no ICH -will restart eliquis OBJECTIVE: Vital Signs Period Temp Pulse Resp BP Sys/Jorgensen Pulse Ox Last 24 Hr 98.2 F-102.1 F 71-113 12-22 93-116/59-70 94-97 GENERAL: The patient is awake, alert, and fully oriented, in no acute distress. HEAD: Normal with no signs of trauma. EYES: PERRL, extraocular movements intact, sclera anicteric, conjunctiva clear. No ptosis. ENT: Ears normal, nares patent, oropharynx clear without exudates, moist mucous membranes. NECK: Trachea midline, full range of motion, supple. LUNGS: Breath sounds equal, clear to auscultation bilaterally, no wheezes, no crackles, no accessory muscle use. HEART: Regular rate and rhythm, S1, S2 without murmur, rub or gallop. ABDOMEN: Soft, nontender, nondistended, normoactive bowel sounds, no guarding, no rebound, no hepatosplenomegaly, no masses. EXTREMITIES: 2+ pulses, warm, well-perfused, no edema. NEUROLOGICAL: Cranial nerves II through XII grossly intact. Normal speech, gait not observed. PSYCH: Normal mood, normal affect. SKIN: Warm, dry, normal turgor, no rashes or lesions noted Laboratory Results - last 24 hr 06/12/18 06/12/18 06/12/18 18:45 19:15 19:15 WBC 13.6 H RBC 4.44 Hgb 14.3 Hct 42.4 MCV 95.4 MCH 32.2 MCHC 33.7 RDW 12.7 Plt Count 160 MPV 11.3 H Absolute Neuts (auto) 11.4 Neutrophils % 84.0 H Lymphocytes % 6.9 L Monocytes % 8.1 Eosinophils % 0.6 Basophils % 0.4 Platelet Estimate Adequate Platelet Comment Moderate large plt PT with INR 17.0 H INR 1.53 H D PTT (Actin FS) 29.7 VBG pH POC VBG pCO2 POC VBG pO2 VBG HCO3 VBG O2 Sat (Eduar) VBG Base Excess Sodium Potassium Chloride Carbon Dioxide Anion Gap BUN Creatinine Creat Clearance w eGFR Random Glucose Hemoglobin A1c % Lactic Acid Calcium Magnesium Total Bilirubin AST ALT Alkaline Phosphatase Troponin I Total Protein Albumin Urine Color Yellow Urine Appearance Clear Urine pH 5.5 Urine Protein Negative Urine Glucose (UA) Negative Urine Ketones Negative Urine Blood Negative Urine Nitrite Negative Urine Bilirubin Negative Urine Urobilinogen 0.2 Ur Leukocyte Esterase Negative 06/12/18 06/12/18 06/12/18 19:15 19:15 19:15 WBC RBC Hgb Hct MCV MCH MCHC RDW Plt Count MPV Absolute Neuts (auto) Neutrophils % Lymphocytes % Monocytes % Eosinophils % Basophils % Platelet Estimate Platelet Comment PT with INR INR PTT (Actin FS) VBG pH 7.51 H POC VBG pCO2 28.9 L POC VBG pO2 48.8 H VBG HCO3 22.8 L VBG O2 Sat (Eduar) 86.6 H VBG Base Excess 2.0 Sodium 137 Potassium 4.0 Chloride 100 Carbon Dioxide 19 L Anion Gap 18 H BUN 24 H Creatinine 0.8 Creat Clearance w eGFR 91.87 Random Glucose 155 H Hemoglobin A1c % Lactic Acid 2.9 H* Calcium 9.0 Magnesium Total Bilirubin 0.9 AST 21 ALT 17 Alkaline Phosphatase 50 Troponin I Total Protein 6.2 L Albumin 3.4 Urine Color Urine Appearance Urine pH Urine Protein Urine Glucose (UA) Urine Ketones Urine Blood Urine Nitrite Urine Bilirubin Urine Urobilinogen Ur Leukocyte Esterase 06/12/18 06/12/18 06/13/18 19:15 22:58 06:30 WBC 8.0 RBC 4.01 Hgb 12.9 Hct 38.9 MCV 96.9 H MCH 32.1 MCHC 33.2 RDW 12.6 Plt Count 126 L D MPV 11.8 H Absolute Neuts (auto) Neutrophils % Lymphocytes % Monocytes % Eosinophils % Basophils % Platelet Estimate Platelet Comment PT with INR INR PTT (Actin FS) VBG pH POC VBG pCO2 POC VBG pO2 VBG HCO3 VBG O2 Sat (Eduar) VBG Base Excess Sodium Potassium Chloride Carbon Dioxide Anion Gap BUN Creatinine Creat Clearance w eGFR Random Glucose Hemoglobin A1c % Lactic Acid 3.5 H* Calcium Magnesium Total Bilirubin AST ALT Alkaline Phosphatase Troponin I < 0.03 Total Protein Albumin Urine Color Urine Appearance Urine pH Urine Protein Urine Glucose (UA) Urine Ketones Urine Blood Urine Nitrite Urine Bilirubin Urine Urobilinogen Ur Leukocyte Esterase 06/13/18 06/13/18 06/13/18 06:30 06:30 06:30 WBC RBC Hgb Hct MCV MCH MCHC RDW Plt Count MPV Absolute Neuts (auto) Neutrophils % Lymphocytes % Monocytes % Eosinophils % Basophils % Platelet Estimate Platelet Comment PT with INR INR PTT (Actin FS) VBG pH POC VBG pCO2 POC VBG pO2 VBG HCO3 VBG O2 Sat (Eduar) VBG Base Excess Sodium 139 Potassium 3.9 Chloride 104 Carbon Dioxide 21 Anion Gap 14 BUN 18 Creatinine 0.6 Creat Clearance w eGFR 128.05 Random Glucose 135 H Hemoglobin A1c % 6.8 H Lactic Acid 2.4 H* Calcium 8.5 Magnesium 1.6 L Total Bilirubin AST ALT Alkaline Phosphatase Troponin I 0.01 Total Protein Albumin Urine Color Urine Appearance Urine pH Urine Protein Urine Glucose (UA) Urine Ketones Urine Blood Urine Nitrite Urine Bilirubin Urine Urobilinogen Ur Leukocyte Esterase Active Medications Generic Name Dose Route Start Last Admin Trade Name Freq PRN Reason Stop Dose Admin Furosemide 60 mg 06/13/18 10:00 Lasix - PO DAILY BAILEE Sodium Chloride 1,000 mls @ 42 mls/hr 06/12/18 23:15 06/12/18 23:53 Normal Saline - IV 42 mls/hr ASDIR BAILEE Administration Azithromycin 500 mg in 250 mls @ 250 mls/hr 06/13/18 10:00 06/13/18 09:47 Zithromax 500mg Ivpb (Pre-Docked) IVPB 250 mls/hr DAILY BAILEE Administration Ceftriaxone Sodium 1 gm/ 50 mls @ 100 mls/hr 06/13/18 10:00 06/13/18 09:00 Dextrose IVPB 100 mls/hr DAILY BAILEE Administration Losartan Potassium 25 mg 06/13/18 10:00 Cozaar - PO BID BAILEE Magnesium Sulfate 1 gm 06/13/18 11:35 Magnesium Sulfate IVPB 06/13/18 11:36 ONCE ONE Metoprolol Succinate 200 mg 06/13/18 10:00 Toprol Xl - PO DAILY BAILEE Multivitamins/Minerals/Vitamin C 1 tab 06/13/18 10:00 06/13/18 09:37 Tab-A-Vit - PO 1 tab DAILY BAILEE Administration Pantoprazole Sodium 40 mg 06/13/18 10:00 06/13/18 09:37 Protonix - PO 40 mg DAILY BAILEE Administration Prednisone 2.5 mg 06/13/18 10:00 06/13/18 09:37 Deltasone - PO 2.5 mg DAILY BAILEE Administration Spironolactone 25 mg 06/13/18 10:00 Aldactone - PO DAILY BAILEE ASSESSMENT/PLAN: Demario Hernandez is a 87 yr old M, medical condition dementia, Afib, chronic on eliquis, DM, CAD, Stroke, hx of Prostate Ca, #Sepsis secondary to community acquired pneumonia -blood cultures x2 -lactic trending down -IVF -sputum culture -urine legionella ag -procalcitonin -ceftiaxone IV -axithromycin IV -supplemental oxygen via NC -hold anti - HTN meds at this time as BP is borderline low #AMS- underlying dementia? May also be metabolic encephalopathy from underlying infection -bed rest -fall precautions -avoid sedatives -head CT to r/o bleed- small left frontal 6mm hyperdensity - likely hemangioma, cannot r/o small bleed. Will monitor patient on telemetry -repeat CT TODAY no interval change, focal hyperdensity also faintly visualized in 09/05/16 CT. no ICH -eliquis restarted -PT #Afib - also LBBB on EKG, probably old. AICD seen. Trop negative. No reported chest pain. -c/w Eliquison hold -metoprolol succinate 200mg po daily -repeat trop -pacemaker interrogation - cardio note appreciated -Echo ordered #Left wrist injury -xray degenerative changes, no acute fx #DM - -A1c 6.8 -diabetic diet -insulin sliding scale #DVT ppx -eliquis on hold Visit type - Emergency Visit Emergency Visit: Yes ED Registration Date: 06/12/18 Care time: The patient presented to the Emergency Department on the above date and was hospitalized for further evaluation of their emergent condition. - New Patient This patient is new to me today: Yes Date on this admission: 06/13/18 - Critical Care Critical Care patient: No
--- NOTE | 2018-06-13 17:05 | CONSULT ---
Consult - text type - Consultation Consultation Note: NEUROSURGERY CONSULTATION Demario Hernandez is an 87 year old male who has a history of Afib and dementia who sustained a fall 6 weeks ago resulting in a wrist injury. The patient presented to the [facility] ER where Head CT demonstrated a hyperdensity in the region of the Left caudate nucleus. Although this may represent a contusion , the remote nature of the fall and the location suggest that this could represent a cavernous malformation or other lesion. MRI is not possible due to his pacemaker and repeat CT was suggested. This shows no change and is more consistent with this representing a chronic lesion such as cavernous malformation rather than acute blood. The patient is awake and alert and at his neurological baseline. At this point, no acute Neurosurgical intervention is indicated or planned. No routine followup or additional imaging is required, however, I discussed warning signs or interval symptoms which may prompt re- evaluation. All questions were answered.
[2018-06-13] MEDS: APIXABAN 2.5 MG TABLET PO SCH (21:28)
[2018-06-13] MEDS: SPIRONOLACTONE 25 MG TABLET (FP) PO SCH (21:28)
[2018-06-13] MEDS: LOSARTAN POTASSIUM 25 MG TABLET PO SCH (21:29)
[2018-06-14 08:30] LABS: ALBUMIN 2.8 g/dl (3.4-5.0); ALK PHOS 40 U/L (45-117); ANION GAP 13 MMOL/L (8-16); BILIRUBIN,TOTAL 0.7 mg/dl (0.2-1); BLOOD UREA NITROGEN 11 mg/dl (7-18); CALCIUM 8.5 mg/dl (8.5-10); CHLORIDE 106 mmol/L (98-107); CO2 21 mmol/L (21-32); CREATININE 0.6 mg/dl (0.55-1.3); GLUCOSE,RANDOM 152 mg/dl (74-106); SGOT/AST 15 U/L (15-37); SGPT/ALT 13 U/L (13-61); SODIUM 140 mmol/L (136-145); TOT PROT 5.3 g/dl (6.4-8.2)
[2018-06-14 08:41] LABS: BASO % 0.6 % (0-2.0); EOS % 3.1 % (0-4.5); HEMATOCRIT 37.6 % (35.4-49); HEMOGLOBIN 12.9 GM/dl (11.7-16.9); LYMPH % 9.8 % (8-40); MCH 32.7 pg (25.7-33.7); MCHC 34.3 g/dl (32.0-35.9); MEAN CELL VOLUME 95.4 fl (80-96); MEAN PLT VOLUME 11.4 fl (7.5-11.1); MONO % 9.9 % (3.8-10.2); NEUT % 76.6 % (42.8-82.8); PLATELET COUNT 128 K/MM3 (134-434); RBC 3.94 M/mm3 (4.00-5.60); RDW 12.6 % (11.9-15.9); WHITE BLOOD COUNT 7.8 K/mm3 (4.0-10.8)
[2018-06-14] MEDS: AZITHROMYCIN IVPB 500 MG/250 ML BAG IVPB SCH (10:10)
[2018-06-14] MEDS: CEFTRIAXONE 1 G/50 ML PREMIX 50 ML IVPB SCH (10:10)
[2018-06-14 11:00] LABS: MAGNESIUM 1.7 mg/dL (1.8-2.4)
[2018-06-14] MEDS: APIXABAN 2.5 MG TABLET PO SCH ×2 (11:10→21:04)
[2018-06-14] MEDS: PANTOPRAZOLE 40 MG TABLET (FP) PO SCH (11:10)
[2018-06-14] MEDS: LOSARTAN POTASSIUM 25 MG TABLET PO SCH ×2 (11:10→21:36)
[2018-06-14] MEDS: predniSONE 5 MG TABLET (UD) PO SCH (11:10)
[2018-06-14] MEDS ORDERED: MAGNESIUM SULF 50% (8.12 MEQ/2 ML-1 GM VIAL) IVPB ONE (11:18)
--- NOTE | 2018-06-14 11:19 | PN ---
Physical Exam: SUBJECTIVE: Patient seen and examined oob to chair. Pleasant but confused. Voices no complaints. OBJECTIVE: Vital Signs Period Temp Pulse Resp BP Sys/Jorgensen Pulse Ox Last 24 Hr 97.5 F-98.4 F 70-100 16-19 100-124/61-79 95-96 GENERAL: The patient is awake and alert. He is oriented to person only. Thinks he is in [place], [place] and he spent the morning at the beach. What year is it? "this year." LUNGS: Breath sounds equal, clear to auscultation bilaterally, no wheezes, no crackles, no accessory muscle use. HEART: Irregular, S1, S2 ABDOMEN: Soft, nontender, nondistended, normoactive bowel sounds, no guarding, no rebound tenderness UPPER EXTREMITIES: 2+ pulses, warm, well-perfused, no edema. LOWER EXTREMITIES: Non-palpable pulses, dopplerable PT on left, DP on right; extensive venous stasis changes bilaterally below the knees, tense edema R>L, no skin breakdown NEUROLOGICAL: Cranial nerves II through XII grossly intact. Speech is clearly articulated, confused content SKIN: Warm, dry, normal turgor, no rashes or lesions noted Laboratory Results - last 24 hr 06/13/18 06/14/18 06/14/18 06:30 07:07 07:07 WBC 7.8 RBC 3.94 L Hgb 12.9 Hct 37.6 MCV 95.4 MCH 32.7 MCHC 34.3 RDW 12.6 Plt Count 128 L MPV 11.4 H Absolute Neuts (auto) 6.0 Neutrophils % 76.6 Lymphocytes % 9.8 D Monocytes % 9.9 Eosinophils % 3.1 D Basophils % 0.6 Sodium 139 140 Potassium 3.9 4.0 Chloride 104 106 Carbon Dioxide 21 21 Anion Gap 14 13 BUN 18 11 Creatinine 0.6 0.6 Creat Clearance w eGFR 128.05 128.05 Random Glucose 135 H 152 H Lactic Acid Calcium 8.5 8.5 Magnesium 1.6 L 1.7 L Total Bilirubin 0.7 AST 15 ALT 13 Alkaline Phosphatase 40 L D Total Protein 5.3 L Albumin 2.8 L 06/14/18 09:06 WBC RBC Hgb Hct MCV MCH MCHC RDW Plt Count MPV Absolute Neuts (auto) Neutrophils % Lymphocytes % Monocytes % Eosinophils % Basophils % Sodium Potassium Chloride Carbon Dioxide Anion Gap BUN Creatinine Creat Clearance w eGFR Random Glucose Lactic Acid 3.7 H* Calcium Magnesium Total Bilirubin AST ALT Alkaline Phosphatase Total Protein Albumin Active Medications Generic Name Dose Route Start Last Admin Trade Name Bettie PRN Reason Stop Dose Admin Apixaban 2.5 mg 06/13/18 22:00 06/13/18 21:28 Eliquis - PO 2.5 mg BID BAILEE Administration Furosemide 60 mg 06/13/18 10:00 Lasix - PO DAILY BAILEE Sodium Chloride 1,000 mls @ 42 mls/hr 06/12/18 23:15 06/12/18 23:53 Normal Saline - IV 42 mls/hr ASDIR BAILEE Administration Azithromycin 500 mg in 250 mls @ 250 mls/hr 06/13/18 10:00 06/13/18 09:47 Zithromax 500mg Ivpb (Pre-Docked) IVPB 250 mls/hr DAILY BAILEE Administration Ceftriaxone Sodium 50 mls @ 100 mls/hr 06/14/18 10:00 Ceftriaxone 1 Gm-D5w Bag IVPB DAILY [facility] Insulin Aspart 0 units 06/14/18 11:00 Novolog Vial SQ ACHS [facility] Protocol Losartan Potassium 25 mg 06/13/18 10:00 06/13/18 21:29 Cozaar - PO 25 mg BID BAILEE Administration Magnesium Sulfate 2 gm 06/14/18 11:18 Magnesium Sulfate IVPB 06/14/18 11:19 ONCE ONE Metoprolol Succinate 200 mg 06/14/18 10:00 Toprol Xl - PO DAILY [facility] Multivitamins/Minerals/Vitamin C 1 tab 06/13/18 10:00 06/13/18 09:37 Tab-A-Vit - PO 1 tab DAILY BAILEE Administration Pantoprazole Sodium 40 mg 06/13/18 10:00 06/13/18 09:37 Protonix - PO 40 mg DAILY BAILEE Administration Prednisone 2.5 mg 06/13/18 10:00 06/13/18 09:37 Deltasone - PO 2.5 mg DAILY BAILEE Administration Spironolactone 25 mg 06/13/18 22:00 06/13/18 21:28 Aldactone - PO 25 mg HS BAILEE Administration ASSESSMENT/PLAN 87 year-old male with a PMH significant for CAD s/p AL s/p PPM (05/2016), atrial fibrillation on Eliquis, CVA (02/2013), peripheral vascular disease, Type II NIDDM, arthritis, and prostate cancer (2016) s/p radiation therapy on hormone therapy. Admitted for severe sepsis of uncertain etiology. Severe sepsis of uncertain etiology Lactic acidosis --T102.1, p113, WBC 13.6k, lactic acid 2.9 on admission --lactic acid trending up; borderline hypotensive; hold losartan, lasix, spironolactone --CXR clear, sputum culture negative, UA negative, CT chest, abdomen, pelvis unremarkable; very low ginna --daughter states patient has had infections in the past from ulcerated legs ; head to toe skin exam, no skin breakdown --repeat labs, lactic acid pending 5:00pm --NS x 500cc bolus now, then 50mL/hr Coronary artery disease s/p PPM --spoke with regular machine burrer, Elva Gabriel [phone]; no previoius h/o heart failure; on diuretics for PVD --not on ASA or statin --06/14 Echo: mild concentric LVH, LV normal, EF 55-60%; RV not well-visualized ; LAE; moderate MR; mild TR; mild AI; trace to mild PI Atrial fibrillation --contine ToprolXL for rate control --continue Eliquis Peripheral vascular disease --chronic edema for which patient is prescribed lasix and spironolactone --no history of surgery or stenting --uses compression stockings; apply TEDs and keep legs elevated Type II NIDDM --A1C 6.8 --anion gap 18 on admission-->13 --was on metformin at home, on hold --Novolog sliding scale coverage Left frontal lobe hyperdensity --serial CT scans, no acute process --seen and evaluated by neurosurgery, this is likely chronic finding, no intervention Prostate cancer --follows with Elva Sanchez, urologist --on hormone therapy, stable Arthritis --on daily low-dose prednisone Hypomagnesemia --repleted FEN Fluids: NS x 500mL; then 50mL/hr Electrolytes: replete as indicated Nutrition: diabetic low sodium DVT prophylaxis: on Eliquis Physical therapy Dispo: continues to require inpatient care. Full code. Visit type - Emergency Visit Emergency Visit: Yes ED Registration Date: 06/12/18 Care time: The patient presented to the Emergency Department on the above date and was hospitalized for further evaluation of their emergent condition. - New Patient This patient is new to me today: Yes Date on this admission: 06/14/18 - Critical Care Critical Care patient: No
[2018-06-14] MEDS: INSULIN (NOVOLOG) ASPART 100 UNITS/ML 10ML VIAL SQ SCH ×3 (11:35→21:37)
[2018-06-14] MEDS ORDERED: MAGNESIUM SULFATE IN WATER 2 GM/50 ML IVPB IVPB ONE (11:45)
[2018-06-14] MEDS ORDERED: INSULIN (NOVOLOG) ASPART 100 UNITS/ML 10ML VIAL ONE (12:11)
--- NOTE | 2018-06-14 14:26 | ECHO ---
Name: DB CARRANZA Exam:Adult Echocardiogram Study Date: 06/14/2018 01:25 PM Age: 87 yrs Reason For Study: ef Height: 70 in Weight: 209 lb BSA: 2.1 m2 MMode/2D Measurements & Calculations IVSd: 1.2 cm Ao root diam: 3.5 cm LVIDd: 4.2 cm LA dimension: 4.5 cm LVIDs: 2.5 cm LVPWd: 1.2 cm EDV(Teich): 80.3 ml LVOT diam: 2.0 cm ESV(Teich): 22.4 ml Doppler Measurements & Calculations MV E max quan: 132.6 cm/sec MV A max quan: 36.0 cm/sec MV dec slope: 752.0 cm/sec2 MV E/A: 3.7 Ao V2 max: 159.1 cm/sec LV V1 max P.9 mmHg Ao max P.1 mmHg LV V1 max: 110.4 cm/sec MILY(V,D): 2.2 cm2 MR max quan: 488.9 cm/sec TR max quan: 262.9 cm/sec MR max P.7 mmHg TR max P.9 mmHg PA V2 max: 123.0 cm/sec PI end-d quan: 130.9 cm/sec PA max P.1 mmHg Procedure A complete two-dimensional transthoracic echocardiogram was performed (2D, M-mode, Doppler and color flow Doppler). Technically limited study. Left Ventricle The left ventricle is normal in size. There is mild concentric left ventricular hypertrophy. Left catie tricular systolic function is normal. Ejection Fraction = 55-60%. No regional wall motion abnormalities noted. Right Ventricle The right ventricle is not well visualized. Atria The left atrium is mildly dilated. Right atrial size is normal. Mitral Valve There is mild mitral annular calcification. There is moderate mitral regurgitation. Tricuspid Valve The tricuspid valve is normal in structure and function. There is mild tricuspid regurgitation. Pulmo nary artery systolic pressure is at least 49 mmHg if RA pressure is assumed 3 mmHg (IVC was not visulized which limits accuracy of PASP). Aortic Valve There is mild aortic sclerosis.;. Mild aortic regurgitation. Pulmonic Valve The pulmonic valve is not well visualized. Trace to mild pulmonic valvular regurgitation. Great Vessels The aortic root is normal size. Pericardium/Pleura There is no pericardial effusion. Interpretation Summary Technically limited study The left ventricle is normal in size. There is mild concentric left ventricular hypertrophy. Left ventricular systolic function is normal. No regional wall motion abnormalities noted. Ejection Fraction = 55-60%. The right ventricle is not well visualized. The left atrium is mildly dilated. Right atrial size is normal. There is mild mitral annular calcification. There is moderate mitral regurgitation. There is mild tricuspid regurgitation. Pulmonary artery systolic pressure is at least 49 mmHg if RA pressure is assumed 3 mmHg (IVC was not visulized which limits accuracy of PASP) There is mild aortic sclerosis. Mild aortic regurgitation. Trace to mild pulmonic valvular regurgitation. There is no pericardial effusion. Previous study is not available for comparison Gigi Cheema MD 06/14/2018 02:25 PM
[2018-06-14] MEDS ORDERED: SODIUM CHLORIDE 500 ML IV STA (16:40)
[2018-06-14] MEDS ORDERED: SODIUM CHLORIDE 1,000 ML IV SCH (16:45)
[2018-06-14 17:05] LABS: HEMATOCRIT 39.8 % (35.4-49); HEMOGLOBIN 13.3 GM/dl (11.7-16.9); MCH 32.1 pg (25.7-33.7); MCHC 33.4 g/dl (32.0-35.9); MEAN PLT VOLUME 9.8 fl (7.5-11.1); PLATELET COUNT 138 K/MM3 (134-434); RBC 4.15 M/mm3 (4.00-5.60); RDW 12.8 % (11.9-15.9); WHITE BLOOD COUNT 9.4 K/mm3 (4.0-10.8)
[2018-06-14] MEDS ORDERED: LACTATED RINGERS SOLUTION 1,000 ML/1,000 ML INFUS.BAG IV SCH (19:15)
[2018-06-14] MEDS: FUROSEMIDE 40 MG TABLET (FP) PO SCH ×2 (21:17→21:36)
[2018-06-14 21:42] LABS: PLATELET ESTIMATE ADEQUATE
[2018-06-15] MEDS: INSULIN (NOVOLOG) ASPART 100 UNITS/ML 10ML VIAL SQ SCH ×4 (06:53→21:22)
[2018-06-15 08:54] LABS: ALBUMIN 2.7 g/dl (3.4-5.0); ALK PHOS 42 U/L (45-117); ANION GAP 9 MMOL/L (8-16); BILIRUBIN,TOTAL 0.7 mg/dl (0.2-1); BLOOD UREA NITROGEN 13 mg/dl (7-18); CALCIUM 8.4 mg/dl (8.5-10); CHLORIDE 108 mmol/L (98-107); CO2 21 mmol/L (21-32); CREATININE 0.7 mg/dl (0.55-1.3); GLUCOSE,RANDOM 137 mg/dl (74-106); MAGNESIUM 1.8 mg/dL (1.8-2.4); SGOT/AST 15 U/L (15-37); SGPT/ALT 15 U/L (13-61); SODIUM 138 mmol/L (136-145); TOT PROT 5.5 g/dl (6.4-8.2)
[2018-06-15] MEDS: CEFTRIAXONE 1 G/50 ML PREMIX 50 ML IVPB SCH (09:55)
[2018-06-15] MEDS: predniSONE 5 MG TABLET (UD) PO SCH (09:56)
[2018-06-15] MEDS: AZITHROMYCIN IVPB 500 MG/250 ML BAG IVPB SCH (09:56)
[2018-06-15] MEDS: APIXABAN 2.5 MG TABLET PO SCH ×2 (09:56→21:14)
[2018-06-15] MEDS: PANTOPRAZOLE 40 MG TABLET (FP) PO SCH (09:56)
--- NOTE | 2018-06-15 10:29 | PN ---
Physical Exam: SUBJECTIVE: Patient seen and examined oob to chair. Daughter present. OBJECTIVE: Vital Signs Period Temp Pulse Resp BP Sys/Jorgensen Pulse Ox Last 24 Hr 97.5 F-100.3 F 73-86 18-18 104-128/65-85 95-96 GENERAL: The patient is awake, alert, much clearer today, no confusion. LUNGS: Breath sounds equal, clear to auscultation bilaterally, no wheezes, no crackles, no accessory muscle use. HEART: Irregular S1, S2 ABDOMEN: Soft, nontender, nondistended, normoactive bowel sounds, no guarding, no rebound, no hepatosplenomegaly, no masses. LOWER EXTREMITIES: Non-palpable pulses, dopplerable PT on left, DP on right; extensive venous stasis changes bilaterally below the knees, tense edema R>L, no skin breakdown NEUROLOGICAL: Cranial nerves II through XII grossly intact. Speech is clear Laboratory Results - last 24 hr 06/14/18 06/14/18 06/14/18 07:07 09:06 11:58 WBC RBC Hgb Hct MCV MCH MCHC RDW Plt Count MPV Absolute Neuts (auto) Neutrophils % Neutrophils % (Manual) Lymphocytes % Lymphocytes % (Manual) Monocytes % (Manual) Platelet Estimate Platelet Comment Sodium 140 Potassium 4.0 Chloride 106 Carbon Dioxide 21 Anion Gap 13 BUN 11 Creatinine 0.6 Creat Clearance w eGFR 128.05 POC Glucometer 163 Random Glucose 152 H Lactic Acid 3.7 H* Calcium 8.5 Magnesium 1.7 L Total Bilirubin 0.7 AST 15 ALT 13 Alkaline Phosphatase 40 L D Total Protein 5.3 L Albumin 2.8 L 06/14/18 06/14/18 06/14/18 16:42 16:42 16:44 WBC 9.4 RBC 4.15 Hgb 13.3 Hct 39.8 MCV 96.0 MCH 32.1 MCHC 33.4 RDW 12.8 Plt Count 138 MPV 9.8 D Absolute Neuts (auto) 7.4 Neutrophils % No Result Required. Neutrophils % (Manual) 91.0 H* Lymphocytes % No Result Required. Lymphocytes % (Manual) 4.0 L Monocytes % (Manual) 5 Platelet Estimate Adequate Platelet Comment Few giants platelets Sodium Potassium Chloride Carbon Dioxide Anion Gap BUN Creatinine Creat Clearance w eGFR POC Glucometer 134 Random Glucose Lactic Acid 2.2 H* Calcium Magnesium Total Bilirubin AST ALT Alkaline Phosphatase Total Protein Albumin 06/14/18 06/15/18 06/15/18 21:08 06:27 07:55 WBC RBC Hgb Hct MCV MCH MCHC RDW Plt Count MPV Absolute Neuts (auto) Neutrophils % Neutrophils % (Manual) Lymphocytes % Lymphocytes % (Manual) Monocytes % (Manual) Platelet Estimate Platelet Comment Sodium 138 Potassium 4.0 Chloride 108 H Carbon Dioxide 21 Anion Gap 9 BUN 13 Creatinine 0.7 Creat Clearance w eGFR 107.18 POC Glucometer 158 137 Random Glucose 137 H Lactic Acid Calcium 8.4 L Magnesium 1.8 Total Bilirubin 0.7 AST 15 ALT 15 Alkaline Phosphatase 42 L Total Protein 5.5 L Albumin 2.7 L Active Medications Generic Name Dose Route Start Last Admin Trade Name Freq PRN Reason Stop Dose Admin Apixaban 2.5 mg 06/13/18 22:00 06/15/18 09:56 Eliquis - PO 2.5 mg BID BAILEE Administration Furosemide 60 mg 06/13/18 10:00 06/14/18 21:36 Lasix - PO Not Given DAILY BAILEE Azithromycin 500 mg in 250 mls @ 250 mls/hr 06/13/18 10:00 06/15/18 09:56 Zithromax 500mg Ivpb (Pre-Docked) IVPB 250 mls/hr DAILY BAILEE Administration Ceftriaxone Sodium 50 mls @ 100 mls/hr 06/14/18 10:00 06/15/18 09:55 Ceftriaxone 1 Gm-D5w Bag IVPB 100 mls/hrDD DAILY BAILEE Administration Sodium Chloride 1,000 mls @ 50 mls/hr 06/14/18 16:45 06/14/18 17:30 Normal Saline - IV 06/15/18 16:40 50 mls/hr ASDIR BAILEE Administration Lactated Ringer's 1,000 ml in 1,000 mls @ 42 mls/hr 06/14/18 19:15 06/14/18 21:17 Lactated Ringers Solution IV 42 mls/hr ASDIR BAILEE Administration Insulin Aspart 0 units 06/14/18 11:00 06/15/18 06:53 Novolog Vial SQ Not Given ACHS BAILEE Protocol Losartan Potassium 25 mg 06/13/18 10:00 06/14/18 21:36 Cozaar - PO Not Given BID BAILEE Metoprolol Succinate 200 mg 06/14/18 10:00 06/15/18 09:56 Toprol Xl - PO 200 mg DAILY BAILEE Administration Pantoprazole Sodium 40 mg 06/13/18 10:00 06/15/18 09:56 Protonix - PO 40 mg DAILY BAILEE Administration Prednisone 2.5 mg 06/13/18 10:00 06/15/18 09:56 Deltasone - PO 2.5 mg DAILY BAILEE Administration Spironolactone 25 mg 06/13/18 22:00 06/13/18 21:28 Aldactone - PO 25 mg HS BAILEE Administration ASSESSMENT/PLAN 87 year-old male with a PMH significant for CAD s/p VA s/p PPM (05/2016), atrial fibrillation on Eliquis, CVA (02/2013), peripheral vascular disease, Type II NIDDM, arthritis, and prostate cancer (2015) s/p radiation therapy on hormone therapy. Admitted for severe sepsis of uncertain etiology. Severe sepsis of uncertain etiology Lactic acidosis --sputum culture (+) NLFGNB today; stop azithro and ceftriaxone, broaden coverage to Zosyn; ID following --CT chest, abdomen, pelvis: unremarkable for infection source; UA negative; blood cultures negative --lactic acidosis persists, peaked 3.7 today 2.2, continue gentle IV fluids Diarrhea --send c.diff, O&P Coronary artery disease s/p PPM --spoke with regular piler, Elva Gabriel [phone]; no previoius h/o heart failure; on diuretics for PVD --not on ASA or statin --06/14 Echo: mild concentric LVH, LV normal, EF 55-60%; RV not well-visualized ; LAE; moderate MR; mild TR; mild AI; trace to mild PI Atrial fibrillation --contine ToprolXL for rate control --continue Eliquis Peripheral vascular disease --chronic edema for which patient is prescribed lasix and spironolactone --no history of surgery or stenting --uses compression stockings; apply TEDs and keep legs elevated --resume spironolactone, continue to hold lasix Type II NIDDM --A1C 6.8 --anion gap 18 on admission-->9 --was on metformin at home, on hold --Novolog sliding scale coverage Left frontal lobe hyperdensity --serial CT scans, no acute process --seen and evaluated by neurosurgery, this is likely chronic finding, no intervention Prostate cancer --follows with Elva Sanchez, urologist --on hormone therapy, stable Arthritis --on daily low-dose prednisone Hypomagnesemia --resolved FEN Fluids: NS @50mL/hr Electrolytes: replete as indicated Nutrition: diabetic low sodium DVT prophylaxis: on Eliquis Physical therapy Dispo: continues to require inpatient care. Full code. Visit type - Emergency Visit Emergency Visit: Yes ED Registration Date: 06/12/18 Care time: The patient presented to the Emergency Department on the above date and was hospitalized for further evaluation of their emergent condition. - New Patient This patient is new to me today: No - Critical Care Critical Care patient: No
--- NOTE | 2018-06-15 14:45 | CON.ID ---
Consult Consult Specialty:: infectious diseases Referred by:: Peg Reason for Consultation:: cough,pneumonia,lactic acidosis - History of Present Illness Chief Complaint: weakness,cough History of Present Illness: 87 year old male, from [facility] brought in to hospital because he was confused, weak, w/ chills, cough, and abdominal pain as per daughter. As per daughter, the patient fell in the bathroom and injured left wrist. patient continues to ahve cough sputum send for culture is showing bacteria clinically patient starting to look better - History Source History Provided By: Patient, Medical Record Limitations to Obtaining History: Poor Historian - Past Medical History Cardio/Vascular: Yes: AFIB, CAD, CHF, HTN - Alcohol/Substance Use Hx Alcohol Use: No - Smoking History Smoking history: Never smoked Have you smoked in the past 12 months: No Home Medications - Allergies Allergies/Adverse Reactions: Allergies Allergy/AdvReac Type Severity Reaction Status Date / Time shellfish derived Allergy Vomiting Verified 06/12/18 18:30 - Home Medications Home Medications: Ambulatory Orders Apixaban [Eliquis] 5 mg PO DAILY 09/05/16 Aspirin [ASA -] 81 mg PO DAILY 09/05/16 Cholecalciferol (Vitamin D3) [Vitamin D3] 2,000 unit PO DAILY 09/05/16 Furosemide [Lasix] 60 mg PO DAILY 09/05/16 Losartan Potassium 25 mg PO BID 09/05/16 Multivitamins [Tab-A-Vit -] 1 tab PO DAILY 09/05/16 metFORMIN HCL [Metformin HCl] 500 mg PO BID 09/05/16 Cholecalciferol (Vitamin D3) [Vitamin D] 2,000 unit PO DAILY 06/12/18 Metoprolol Succinate 200 mg PO DAILY 06/12/18 Pantoprazole Sodium 40 mg PO DAILY 06/12/18 Spironolactone 25 mg PO DAILY 06/12/18 predniSONE [Deltasone -] 2.5 mg PO DAILY 06/12/18 Review of Systems - Review of Systems Constitutional: reports: Weakness, Other Eyes: reports: No Symptoms HENT: reports: No Symptoms Neck: reports: No Symptoms Cardiovascular: reports: No Symptoms Respiratory: reports: Cough, Other (sputum production) Gastrointestinal: reports: No Symptoms Genitourinary: reports: No Symptoms Musculoskeletal: reports: No Symptoms Integumentary: reports: No Symptoms Neurological: reports: No Symptoms Endocrine: reports: No Symptoms Hematology/Lymphatic: reports: No Symptoms Psychiatric: reports: No Symptoms Physical Exam Vital Signs: Vital Signs Temperature 98.4 F 06/15/18 09:38 Pulse Rate 74 06/15/18 09:38 Respiratory Rate 18 06/15/18 09:38 Blood Pressure 128/67 06/15/18 09:38 O2 Sat by Pulse Oximetry (%) 96 06/15/18 09:00 Constitutional: Yes: Well Nourished, No Distress, Calm Eyes: Yes: Conjunctiva Clear HENT: Yes: Atraumatic, Normocephalic Neck: Yes: Supple, Trachea Midline Cardiovascular: Yes: S1, S2 Respiratory: Yes: Regular, Poor Air Entry (at the bases) Gastrointestinal: Yes: Normal Bowel Sounds, Soft Musculoskeletal: Yes: WNL Extremities: Yes: WNL Neurological: Yes: Alert Psychiatric: Yes: Alert Labs: CBC, BMP 06/14/18 16:42 06/15/18 07:55 Imaging - Results Chest X-ray: Report Reviewed, Image Reviewed Cat Scan: Report Reviewed, Image Reviewed Assessment/Plan patient with multiple medical problems sputum positive for gm negative bacteria pneumonia ams sepsis afib lactic acidosis plan will start patient on zosyn he also might be a bit dehydrated await for the cx to be back hydration follow lactic acid rest as per the team
[2018-06-15] MEDS ORDERED: PIPERACILLIN/TAZOBACTAM 3.375 GM VIAL IVPB ONE ×2 (16:09→20:50)
[2018-06-15] MEDS ORDERED: DEXTROSE 5%-WATER - 50 ML IVPB ONE ×2 (16:09→20:50)
[2018-06-15] MEDS: PIPERACILLIN/TAZOB 3.375 GM 3.375 GM in DEXTROSE 5%-WATER - 50 ML IVPB SCH ×2 (16:17→22:40)
[2018-06-16] MEDS ORDERED: DEXTROSE 5%-WATER - 50 ML IVPB ONE ×3 (06:01→22:38)
[2018-06-16] MEDS ORDERED: PIPERACILLIN/TAZOBACTAM 3.375 GM VIAL IVPB ONE ×3 (06:01→22:37)
[2018-06-16] MEDS: PIPERACILLIN/TAZOB 3.375 GM 3.375 GM in DEXTROSE 5%-WATER - 50 ML IVPB SCH ×3 (06:48→22:41)
[2018-06-16] MEDS: INSULIN (NOVOLOG) ASPART 100 UNITS/ML 10ML VIAL SQ SCH ×4 (06:48→21:44)
--- NOTE | 2018-06-16 08:41 | PN ---
Physical Exam: SUBJECTIVE: Patient seen and examined oob to chair. OBJECTIVE: Vital Signs Period Temp Pulse Resp BP Sys/Jorgensen Pulse Ox Last 24 Hr 97.4 F-98.4 F 71-96 18-18 111-134/64-73 95-98 GENERAL: The patient is awake, alert. Mildly confused. LUNGS: Breath sounds equal, clear to auscultation bilaterally, no wheezes, no crackles, no accessory muscle use. HEART: Irregular S1, S2 ABDOMEN: Soft, nontender, nondistended, normoactive bowel sounds, no guarding, no rebound, no hepatosplenomegaly, no masses. LOWER EXTREMITIES: Non-palpable pulses, dopplerable PT on left, DP on right; extensive venous stasis changes bilaterally below the knees, tense edema R>L, no skin breakdown NEUROLOGICAL: Cranial nerves II through XII grossly intact. Speech is clear Laboratory Results - last 24 hr 06/15/18 06/15/18 06/15/18 07:55 11:25 11:56 Sodium 138 Potassium 4.0 Chloride 108 H Carbon Dioxide 21 Anion Gap 9 BUN 13 Creatinine 0.7 Creat Clearance w eGFR 107.18 POC Glucometer 183 Random Glucose 137 H Lactic Acid 2.2 H* Calcium 8.4 L Magnesium 1.8 Total Bilirubin 0.7 AST 15 ALT 15 Alkaline Phosphatase 42 L Total Protein 5.5 L Albumin 2.7 L 06/15/18 06/15/18 06/16/18 16:20 21:19 06:38 Sodium Potassium Chloride Carbon Dioxide Anion Gap BUN Creatinine Creat Clearance w eGFR POC Glucometer 162 154 122 Random Glucose Lactic Acid Calcium Magnesium Total Bilirubin AST ALT Alkaline Phosphatase Total Protein Albumin Active Medications Generic Name Dose Route Start Last Admin Trade Name Freq PRN Reason Stop Dose Admin Apixaban 2.5 mg 06/13/18 22:00 06/15/18 21:14 Eliquis - PO 2.5 mg BID BAILEE Administration Furosemide 60 mg 06/13/18 10:00 06/14/18 21:36 Lasix - PO Not Given DAILY BAILEE Piperacillin Sod/Tazobactam 50 mls @ 100 mls/hr 06/15/18 15:00 06/16/18 06:48 Sod 3.375 gm/ Dextrose IVPB 100 mls/hr Q8H BAILEE Administration Protocol Insulin Aspart 0 units 06/14/18 11:00 06/16/18 06:48 Novolog Vial SQ Not Given ACHS [facility] Protocol Losartan Potassium 25 mg 06/13/18 10:00 06/14/18 21:36 Cozaar - PO Not Given BID BAILEE Metoprolol Succinate 200 mg 06/14/18 10:00 06/15/18 09:56 Toprol Xl - PO 200 mg DAILY BAILEE Administration Pantoprazole Sodium 40 mg 06/13/18 10:00 06/15/18 09:56 Protonix - PO 40 mg DAILY BAILEE Administration Prednisone 2.5 mg 06/13/18 10:00 06/15/18 09:56 Deltasone - PO 2.5 mg DAILY BAILEE Administration Spironolactone 25 mg 06/13/18 22:00 06/13/18 21:28 Aldactone - PO 25 mg HS BAILEE Administration ASSESSMENT/PLAN 87 year-old male with a PMH significant for CAD s/p [place] s/p PPM (05/2016), atrial fibrillation on Eliquis, CVA (02/2013), peripheral vascular disease, Type II NIDDM, arthritis, and prostate cancer (2015) s/p radiation therapy on hormone therapy. Admitted for severe sepsis of uncertain etiology. Severe sepsis likely secondary to pseudomonas pneumonia Lactic acidosis --sputum culture (+) psuedomonas sensitive to Zosyn, will continue (day #2) --lactic acidosis persists, peaked 3.7 today 2.2 Diarrhea --c.diff preliminary negative Coronary artery disease s/p PPM --spoke with regular grinding wheel operator, Elva Gabriel [phone]; no previous h/o heart failure; on diuretics for PVD --not on ASA or statin --06/14 Echo: mild concentric LVH, LV normal, EF 55-60%; RV not well-visualized ; LAE; moderate MR; mild TR; mild AI; trace to mild PI Atrial fibrillation --contine ToprolXL for rate control --continue Eliquis Peripheral vascular disease --chronic edema for which patient is prescribed lasix and spironolactone --no history of surgery or stenting --uses compression stockings; apply TEDs and keep legs elevated --resume spironolactone, continue to hold lasix Type II NIDDM --A1C 6.8 --anion gap 18 on admission-->9 --was on metformin at home, on hold --Novolog sliding scale coverage Left frontal lobe hyperdensity --serial CT scans, no acute process --seen and evaluated by neurosurgery, this is likely chronic finding, no intervention Prostate cancer --follows with Elva Sanchez, urologist --on hormone therapy, stable Arthritis --on daily low-dose prednisone FEN Fluids: PO intake adequate Electrolytes: replete as indicated Nutrition: diabetic low sodium DVT prophylaxis: on Eliquis Physical therapy Dispo: continues to require inpatient care. Full code. repleted Mg Visit type - Emergency Visit Emergency Visit: Yes ED Registration Date: 06/12/18 Care time: The patient presented to the Emergency Department on the above date and was hospitalized for further evaluation of their emergent condition. - New Patient This patient is new to me today: No - Critical Care Critical Care patient: No
[2018-06-16 09:10] LABS: EOS % 3.8 % (0-4.5); HEMOGLOBIN 12.8 GM/dl (11.7-16.9)
[2018-06-16 09:13] LABS: ALBUMIN 2.7 g/dl (3.4-5.0); ALK PHOS 40 U/L (45-117); ANION GAP 10 MMOL/L (8-16); BILIRUBIN,TOTAL 0.6 mg/dl (0.2-1); BLOOD UREA NITROGEN 13 mg/dl (7-18); CALCIUM 8.5 mg/dl (8.5-10); CHLORIDE 106 mmol/L (98-107); CO2 22 mmol/L (21-32); CREATININE 0.7 mg/dl (0.55-1.3); GLUCOSE,RANDOM 143 mg/dl (74-106); MAGNESIUM 1.6 mg/dL (1.8-2.4); POTASSIUM 4.1 mmol/L (3.5-5.1); SGOT/AST 17 U/L (15-37); SGPT/ALT 15 U/L (13-61); SODIUM 138 mmol/L (136-145); TOT PROT 5.6 g/dl (6.4-8.2)
[2018-06-16] MEDS: predniSONE 5 MG TABLET (UD) PO SCH (09:29)
[2018-06-16] MEDS: PANTOPRAZOLE 40 MG TABLET (FP) PO SCH (09:29)
[2018-06-16] MEDS: APIXABAN 2.5 MG TABLET PO SCH ×2 (09:29→21:35)
[2018-06-16] MEDS ORDERED: MAGNESIUM SULF 50% (8.12 MEQ/2 ML-1 GM VIAL) IVPB ONE (09:39)
[2018-06-16 09:41] LABS: BASO % 0.1 % (0-2.0); HEMATOCRIT 37.6 % (35.4-49); LYMPH % 8.2 % (8-40); MCH 32.5 pg (25.7-33.7); MEAN CELL VOLUME 95.6 fl (80-96); MEAN PLT VOLUME 11.5 fl (7.5-11.1); MONO % 7.5 % (3.8-10.2); NEUT % 80.4 % (42.8-82.8); PLATELET COUNT 169 K/MM3 (134-434); RBC 3.93 M/mm3 (4.00-5.60); RDW 12.5 % (11.9-15.9); WHITE BLOOD COUNT 8.3 K/mm3 (4.0-10.8)
[2018-06-16] MEDS ORDERED: MAGNESIUM SULFATE IN WATER 2 GM/50 ML IVPB IVPB ONE (10:00)
--- NOTE | 2018-06-16 14:20 | PN ---
Progress Note, Physician History of Present Illness: patient feeling better sputum showing pseudomonas - Current Medication List Current Medications: Active Medications Apixaban (Eliquis -) 2.5 mg PO BID [facility] Last Admin: 06/16/18 09:29 Dose: 2.5 mg Furosemide (Lasix -) 60 mg PO DAILY [facility] Last Admin: 06/14/18 21:36 Dose: Not Given Piperacillin Sod/Tazobactam (Sod 3.375 gm/ Dextrose) 50 mls @ 100 mls/hr IVPB Q8H [facility]; Protocol Last Admin: 06/16/18 06:48 Dose: 100 mls/hr Insulin Aspart (Novolog Vial) 0 units SQ ACHS [facility]; Protocol Last Admin: 06/16/18 12:06 Dose: 2 units Losartan Potassium (Cozaar -) 25 mg PO BID [facility] Last Admin: 06/14/18 21:36 Dose: Not Given Metoprolol Succinate (Toprol Xl -) 200 mg PO DAILY [facility] Last Admin: 06/16/18 09:28 Dose: 200 mg Pantoprazole Sodium (Protonix -) 40 mg PO DAILY [facility] Last Admin: 06/16/18 09:29 Dose: 40 mg Prednisone (Deltasone -) 2.5 mg PO DAILY [facility] Last Admin: 06/16/18 09:29 Dose: 2.5 mg Spironolactone (Aldactone -) 25 mg PO HS [facility] Last Admin: 06/13/18 21:28 Dose: 25 mg - Objective Vital Signs: Vital Signs Temperature 97.4 F L 06/16/18 09:09 Pulse Rate 83 06/16/18 09:09 Respiratory Rate 18 06/16/18 09:09 Blood Pressure 132/66 06/16/18 09:09 O2 Sat by Pulse Oximetry (%) 95 06/16/18 09:00 Constitutional: Yes: No Distress, Calm Cardiovascular: Yes: S1, S2 Respiratory: Yes: Regular, Poor Air Entry Gastrointestinal: Yes: Normal Bowel Sounds, Soft Musculoskeletal: Yes: WNL Extremities: Yes: WNL Neurological: Yes: Alert, Oriented Psychiatric: Yes: Alert, Oriented Labs: CBC, BMP 06/16/18 07:42 06/16/18 07:42 INR, PTT INR 1.53 (0.82-1.09) H D 06/12/18 19:15 Assessment/Plan patient with multiple medical problems now with pseudomonas pneumonia pneumonia ams sepsis afib plan continue zosyn will need it for some time rest as per the team incentive manuel
[2018-06-16] MEDS ORDERED: INSULIN (NOVOLOG) ASPART 100 UNITS/ML 10ML VIAL ONE (17:04)
[2018-06-17] MEDS ORDERED: DEXTROSE 5%-WATER - 50 ML IVPB ONE ×3 (06:44→23:19)
[2018-06-17] MEDS ORDERED: PIPERACILLIN/TAZOBACTAM 3.375 GM VIAL IVPB ONE ×3 (06:44→23:19)
[2018-06-17] MEDS: PIPERACILLIN/TAZOB 3.375 GM 3.375 GM in DEXTROSE 5%-WATER - 50 ML IVPB SCH ×3 (07:01→23:22)
[2018-06-17] MEDS: INSULIN (NOVOLOG) ASPART 100 UNITS/ML 10ML VIAL SQ SCH ×3 (07:01→21:08)
--- NOTE | 2018-06-17 08:07 | PN ---
Progress Note, Physician History of Present Illness: doing well no complaints still coughing but better - Current Medication List Current Medications: Active Medications Apixaban (Eliquis -) 2.5 mg PO BID [facility] Last Admin: 06/16/18 21:35 Dose: 2.5 mg Furosemide (Lasix -) 60 mg PO DAILY [facility] Last Admin: 06/14/18 21:36 Dose: Not Given Piperacillin Sod/Tazobactam (Sod 3.375 gm/ Dextrose) 50 mls @ 100 mls/hr IVPB Q8H [facility]; Protocol Last Admin: 06/17/18 07:01 Dose: 100 mls/hr Insulin Aspart (Novolog Vial) 0 units SQ ACHS [facility]; Protocol Last Admin: 06/17/18 07:01 Dose: Not Given Losartan Potassium (Cozaar -) 25 mg PO BID [facility] Last Admin: 06/14/18 21:36 Dose: Not Given Metoprolol Succinate (Toprol Xl -) 200 mg PO DAILY [facility] Last Admin: 06/16/18 09:28 Dose: 200 mg Pantoprazole Sodium (Protonix -) 40 mg PO DAILY [facility] Last Admin: 06/16/18 09:29 Dose: 40 mg Prednisone (Deltasone -) 2.5 mg PO DAILY [facility] Last Admin: 06/16/18 09:29 Dose: 2.5 mg Spironolactone (Aldactone -) 25 mg PO HS [facility] Last Admin: 06/13/18 21:28 Dose: 25 mg - Objective Vital Signs: Vital Signs Temperature 97.5 F L 06/17/18 04:00 Pulse Rate 97 H 06/17/18 04:00 Respiratory Rate 18 06/17/18 04:00 Blood Pressure 119/61 06/17/18 04:00 O2 Sat by Pulse Oximetry (%) 96 06/17/18 04:00 Constitutional: Yes: No Distress, Calm HENT: Yes: Atraumatic Neck: Yes: Supple, Trachea Midline Cardiovascular: Yes: Regular Rate and Rhythm Respiratory: Yes: Cough, Poor Air Entry (at the base) Gastrointestinal: Yes: Normal Bowel Sounds, Soft Musculoskeletal: Yes: WNL Extremities: Yes: WNL Neurological: Yes: Alert, Oriented Psychiatric: Yes: Alert, Oriented Labs: INR, PTT INR 1.53 (0.82-1.09) H D 06/12/18 19:15 Assessment/Plan patient with multiple medical problems now with pseudomonas pneumonia pneumonia ams sepsis afib plan continue zosyn will need it for some time rest as per the team incentive manuel
[2018-06-17 08:23] LABS: ALBUMIN 2.8 g/dl (3.4-5.0); BILIRUBIN,TOTAL 0.7 mg/dl (0.2-1); CALCIUM 8.5 mg/dl (8.5-10); CREATININE 0.7 mg/dl (0.55-1.3); MAGNESIUM 1.7 mg/dL (1.8-2.4); POTASSIUM 3.8 mmol/L (3.5-5.1); TOT PROT 5.6 g/dl (6.4-8.2)
[2018-06-17 08:37] LABS: BASO % 0.1 % (0-2.0); EOS % 3.6 % (0-4.5); HEMATOCRIT 38.5 % (35.4-49); HEMOGLOBIN 13.2 GM/dl (11.7-16.9); LYMPH % 6.5 % (8-40); MCH 32.9 pg (25.7-33.7); MCHC 34.2 g/dl (32.0-35.9); MEAN CELL VOLUME 96.2 fl (80-96); MEAN PLT VOLUME 10.7 fl (7.5-11.1); MONO % 8.3 % (3.8-10.2); NEUT % 81.5 % (42.8-82.8); PLATELET COUNT 161 K/MM3 (134-434); RBC 4.01 M/mm3 (4.00-5.60); RDW 12.8 % (11.9-15.9); WHITE BLOOD COUNT 9.9 K/mm3 (4.0-10.8)
[2018-06-17] MEDS ORDERED: MAGNESIUM SULF 50% (8.12 MEQ/2 ML-1 GM VIAL) IVPB ONE (09:01)
[2018-06-17] MEDS: APIXABAN 2.5 MG TABLET PO SCH ×2 (09:36→21:07)
[2018-06-17] MEDS: predniSONE 5 MG TABLET (UD) PO SCH (09:36)
[2018-06-17] MEDS: PANTOPRAZOLE 40 MG TABLET (FP) PO SCH (09:36)
[2018-06-17] MEDS ORDERED: MAGNESIUM SULFATE IN WATER 2 GM/50 ML IVPB IVPB ONE (09:45)
--- NOTE | 2018-06-17 11:37 | PN ---
Progress Note, Physician History of Present Illness: Denies dyspnea or chest pain, eating lunch in chair, persistent afib with v- pacing. - Current Medication List Current Medications: Active Medications Apixaban (Eliquis -) 2.5 mg PO BID [facility] Last Admin: 06/17/18 09:36 Dose: 2.5 mg Piperacillin Sod/Tazobactam (Sod 3.375 gm/ Dextrose) 50 mls @ 100 mls/hr IVPB Q8H [facility]; Protocol Last Admin: 06/17/18 07:01 Dose: 100 mls/hr Insulin Aspart (Novolog Vial) 0 units SQ ACHS [facility]; Protocol Last Admin: 06/17/18 07:01 Dose: Not Given Losartan Potassium (Cozaar -) 25 mg PO BID [facility] Last Admin: 06/14/18 21:36 Dose: Not Given Metoprolol Succinate (Toprol Xl -) 200 mg PO DAILY [facility] Last Admin: 06/17/18 09:36 Dose: 200 mg Pantoprazole Sodium (Protonix -) 40 mg PO DAILY [facility] Last Admin: 06/17/18 09:36 Dose: 40 mg Prednisone (Deltasone -) 2.5 mg PO DAILY [facility] Last Admin: 06/17/18 09:36 Dose: 2.5 mg Spironolactone (Aldactone -) 25 mg PO HS [facility] Last Admin: 06/13/18 21:28 Dose: 25 mg - Objective Vital Signs: Vital Signs Temperature 97.7 F 06/17/18 10:00 Pulse Rate 69 06/17/18 10:00 Respiratory Rate 19 06/17/18 10:00 Blood Pressure 96/58 L 06/17/18 10:00 O2 Sat by Pulse Oximetry (%) 94 L 06/17/18 10:00 Constitutional: Yes: No Distress, Calm, Thin Neck: Yes: Supple Cardiovascular: Yes: Regular Rate and Rhythm Respiratory: Yes: Regular, Diminished Gastrointestinal: Yes: Normal Bowel Sounds, Soft Edema: No Labs: CBC, BMP 06/17/18 07:40 06/17/18 07:40 INR, PTT INR 1.53 (0.82-1.09) H D 06/12/18 19:15 - ....Imaging EKG: Report Reviewed (Tele: Persistent afib with v-pacing) Problem List - Problems (1) Pseudomonas pneumonia Code(s): J15.1 - PNEUMONIA DUE TO PSEUDOMONAS (2) Persistent atrial fibrillation Code(s): I48.1 - PERSISTENT ATRIAL FIBRILLATION (3) SSS (sick sinus syndrome) Code(s): I49.5 - SICK SINUS SYNDROME (4) Pacemaker Code(s): Z95.0 - PRESENCE OF CARDIAC PACEMAKER (5) Diastolic dysfunction without heart failure Code(s): I51.89 - OTHER ILL-DEFINED HEART DISEASES (6) Hypertensive heart disease Code(s): I11.9 - HYPERTENSIVE HEART DISEASE WITHOUT HEART FAILURE Qualifiers: Heart failure presence: without heart failure Qualified Code(s): I11.9 - Hypertensive heart disease without heart failure (7) Sepsis Code(s): A41.9 - SEPSIS, UNSPECIFIED ORGANISM Qualifiers: Sepsis type: sepsis due to unspecified organism Qualified Code(s): A41.9 - Sepsis, unspecified organism Assessment/Plan 06/14/2018 Echo: Normal LV size with mild cLVH and normal LV fxn LVEF 55-60%, mild LAE, mod MR, mild TR RVSP 49 mmHg, mild [place], [place] 06/14/2018 Chest & abd/pelvic CT: Dependent ATX, diverticulosis without diverticulitis 1. Pseudomonas pneumonia post sepsis resolving 2. Toxic metabolic encephelopathy with underlying dementia resolved 3. CAD s/p GA, angina pectoris 4. Persistent afib, sss s/p PPM 5. Hypertension 6. Hyperlipidemia 7. Diastolic dysfunction 8. Chronic peripheral edema Plan: 1. Abx course per ID, oral steroid with GI protection 2. Cont AC with Eliquis 2.5 bid, losartan 25 bid, Toprol XL 200 qd and Aldactone 25 qd 3. Eventual f/u with regular bindery cutter operator, Elva Gabriel [phone] 4. Compression therapy 5. PT as tolerated
--- NOTE | 2018-06-17 12:15 | PN ---
Physical Exam: SUBJECTIVE: Patient seen and examined oob to chair. OBJECTIVE: Vital Signs Period Temp Pulse Resp BP Sys/Jorgensen Pulse Ox Last 24 Hr 97.4 F-97.8 F 69-777 18-19 96-119/58-69 94-96 GENERAL: The patient is awake, alert. Quiet, not talkative today. LUNGS: Breath sounds equal, clear to auscultation bilaterally, no wheezes, no crackles, no accessory muscle use. HEART: Irregular S1, S2 ABDOMEN: Soft, nontender, nondistended, normoactive bowel sounds, no guarding, no rebound, no hepatosplenomegaly, no masses. LOWER EXTREMITIES: Non-palpable pulses, dopplerable PT on left, DP on right; extensive venous stasis changes bilaterally below the knees, tense edema R>L, no skin breakdown NEUROLOGICAL: Cranial nerves II through XII grossly intact. Speech is clear Laboratory Results - last 24 hr 06/16/18 06/16/18 06/17/18 16:58 21:41 06:18 WBC RBC Hgb Hct MCV MCH MCHC RDW Plt Count MPV Absolute Neuts (auto) Neutrophils % Lymphocytes % Monocytes % Eosinophils % Basophils % Sodium Potassium Chloride Carbon Dioxide Anion Gap BUN Creatinine Est GFR (CKD-EPI)AfAm Est GFR (CKD-EPI)NonAf POC Glucometer 200 120 140 Random Glucose Lactic Acid Calcium Magnesium Total Bilirubin AST ALT Alkaline Phosphatase Total Protein Albumin 06/17/18 06/17/18 06/17/18 07:40 07:40 07:40 WBC 9.9 RBC 4.01 Hgb 13.2 Hct 38.5 MCV 96.2 H MCH 32.9 MCHC 34.2 RDW 12.8 Plt Count 161 MPV 10.7 Absolute Neuts (auto) 8.1 Neutrophils % 81.5 Lymphocytes % 6.5 L D Monocytes % 8.3 Eosinophils % 3.6 Basophils % 0.1 Sodium 140 Potassium 3.8 Chloride 104 Carbon Dioxide 21 Anion Gap 15 BUN 9 Creatinine 0.7 Est GFR (CKD-EPI)AfAm 99.73 Est GFR (CKD-EPI)NonAf 86.05 POC Glucometer Random Glucose 141 H Lactic Acid 2.1 H Calcium 8.5 Magnesium 1.7 L Total Bilirubin 0.7 AST 16 ALT 16 Alkaline Phosphatase 41 L Total Protein 5.6 L Albumin 2.8 L Active Medications Generic Name Dose Route Start Last Admin Trade Name Bettie PRN Reason Stop Dose Admin Apixaban 2.5 mg 06/13/18 22:00 06/17/18 09:36 Eliquis - PO 2.5 mg BID BAILEE Administration Piperacillin Sod/Tazobactam 50 mls @ 100 mls/hr 06/15/18 15:00 06/17/18 07:01 Sod 3.375 gm/ Dextrose IVPB 100 mls/hr Q8H BAILEE Administration Protocol Insulin Aspart 0 units 06/14/18 11:00 06/17/18 07:01 Novolog Vial SQ Not Given ACHS BAILEE Protocol Losartan Potassium 25 mg 06/13/18 10:00 06/14/18 21:36 Cozaar - PO Not Given BID BAILEE Metoprolol Succinate 200 mg 06/14/18 10:00 06/17/18 09:36 Toprol Xl - PO 200 mg DAILY BAILEE Administration Pantoprazole Sodium 40 mg 06/13/18 10:00 06/17/18 09:36 Protonix - PO 40 mg DAILY BAILEE Administration Prednisone 2.5 mg 06/13/18 10:00 06/17/18 09:36 Deltasone - PO 2.5 mg DAILY BAILEE Administration Spironolactone 25 mg 06/13/18 22:00 06/13/18 21:28 Aldactone - PO 25 mg HS BAILEE Administration ASSESSMENT/PLAN 87 year-old male with a PMH significant for CAD s/p UT s/p PPM (05/2016), atrial fibrillation on Eliquis, CVA (02/2013), peripheral vascular disease, Type II NIDDM, arthritis, and prostate cancer (2015) s/p radiation therapy on hormone therapy. Admitted for severe sepsis. Severe sepsis likely secondary to pseudomonas pneumonia Lactic acidosis --sputum culture (+) psuedomonas sensitive to Zosyn, will continue (day #3) --lactic acidosis trending down, peaked 3.7 today 2.1 Diarrhea --c.diff negative Coronary artery disease s/p PPM --spoke with regular diamond sawer, Elva Gabriel [phone]; no previous h/o heart failure; on diuretics for PVD --not on ASA or statin --06/14 Echo: mild concentric LVH, LV normal, EF 55-60%; RV not well-visualized ; LAE; moderate MR; mild TR; mild AI; trace to mild PI Atrial fibrillation --contine ToprolXL for rate control --continue Eliquis Peripheral vascular disease --chronic edema for which patient is prescribed lasix and spironolactone; no history of surgery or stenting --resume spironolactone, continue to hold lasix Type II NIDDM --A1C 6.8 --Novolog sliding scale coverage Left frontal lobe hyperdensity --serial CT scans, no acute process --seen and evaluated by neurosurgery, chronic finding, no intervention Prostate cancer --follows with Elva Sanchez, urologist --on hormone therapy, stable Arthritis --on daily low-dose prednisone FEN Fluids: PO intake adequate Electrolytes: replete as indicated Nutrition: diabetic low sodium DVT prophylaxis: on Eliquis Physical therapy Dispo: continues to require inpatient care. Full code. Visit type - Emergency Visit Emergency Visit: Yes ED Registration Date: 06/12/18 Care time: The patient presented to the Emergency Department on the above date and was hospitalized for further evaluation of their emergent condition. - New Patient This patient is new to me today: No - Critical Care Critical Care patient: No
[2018-06-17] MEDS ORDERED: INSULIN (NOVOLOG) ASPART 100 UNITS/ML 10ML VIAL ONE (13:30)
[2018-06-18] MEDS: INSULIN (NOVOLOG) ASPART 100 UNITS/ML 10ML VIAL SQ SCH ×4 (06:27→21:53)
[2018-06-18] MEDS ORDERED: PIPERACILLIN/TAZOBACTAM 3.375 GM VIAL IVPB ONE ×3 (06:28→21:53)
[2018-06-18] MEDS ORDERED: DEXTROSE 5%-WATER - 50 ML IVPB ONE ×3 (06:28→21:54)
[2018-06-18] MEDS: PIPERACILLIN/TAZOB 3.375 GM 3.375 GM in DEXTROSE 5%-WATER - 50 ML IVPB SCH ×3 (06:30→22:22)
--- NOTE | 2018-06-18 09:32 | PN ---
Physical Exam: SUBJECTIVE: Patient seen and examined oob to chair. OBJECTIVE: Vital Signs Period Temp Pulse Resp BP Sys/Jorgensen Pulse Ox Last 24 Hr 97.7 F-98.7 F 69-131 19-20 92-122/58-81 94-95 GENERAL: The patient is awake, alert. LUNGS: Breath sounds equal, clear to auscultation bilaterally, no wheezes, no crackles, no accessory muscle use. HEART: Irregular S1, S2 ABDOMEN: Soft, nontender, nondistended, normoactive bowel sounds, no guarding, no rebound, no hepatosplenomegaly, no masses. LOWER EXTREMITIES: bilateral edema, compression stockings NEUROLOGICAL: Cranial nerves II through XII grossly intact. Speech is clear Laboratory Results - last 24 hr 06/17/18 06/17/18 06/17/18 13:27 18:17 20:55 POC Glucometer 217 120 129 06/18/18 06:01 POC Glucometer 148 Active Medications Generic Name Dose Route Start Last Admin Trade Name Freq PRN Reason Stop Dose Admin Apixaban 2.5 mg 06/13/18 22:00 06/17/18 21:07 Eliquis - PO 2.5 mg BID BAILEE Administration Piperacillin Sod/Tazobactam 50 mls @ 100 mls/hr 06/15/18 15:00 06/18/18 06:30 Sod 3.375 gm/ Dextrose IVPB 100 mls/hr Q8H BAILEE Administration Protocol Insulin Aspart 0 units 06/14/18 11:00 06/18/18 06:27 Novolog Vial SQ Not Given ACHS BAILEE Protocol Losartan Potassium 25 mg 06/13/18 10:00 06/14/18 21:36 Cozaar - PO Not Given BID BAILEE Metoprolol Succinate 200 mg 06/14/18 10:00 06/17/18 09:36 Toprol Xl - PO 200 mg DAILY BAIELE Administration Pantoprazole Sodium 40 mg 06/13/18 10:00 06/17/18 09:36 Protonix - PO 40 mg DAILY BAILEE Administration Prednisone 2.5 mg 06/13/18 10:00 06/17/18 09:36 Deltasone - PO 2.5 mg DAILY BAILEE Administration Spironolactone 25 mg 06/13/18 22:00 06/13/18 21:28 Aldactone - PO 25 mg HS BAILEE Administration ASSESSMENT/PLAN 87 year-old male with a PMH significant for CAD s/p MA s/p PPM (05/2016), atrial fibrillation on Eliquis, CVA (02/2013), peripheral vascular disease, Type II NIDDM, arthritis, and prostate cancer (2015) s/p radiation therapy on hormone therapy. Admitted for severe sepsis. Pseudomonas pneumonia post sepsis Lactic acidosis, resolved --sputum culture (+) psuedomonas sensitive to Zosyn, will continue (day #4) --lactic acidosis resolved Diarrhea --c.diff negative Coronary artery disease s/p PPM --spoke with regular brand marketing manager, Elva Gabriel [phone]; no previous h/o heart failure; on diuretics for PVD --not on ASA or statin --06/14 Echo: mild concentric LVH, LV normal, EF 55-60%; RV not well-visualized ; LAE; moderate MR; mild TR; mild AI; trace to mild PI -resume losartan, continue ToprolXL Atrial fibrillation --contine ToprolXL for rate control --continue Eliquis Peripheral vascular disease --chronic edema which is at baseline --continue spironolactone, continue to hold lasix, compression stockings Type II NIDDM --A1C 6.8 --Novolog sliding scale coverage Left frontal lobe hyperdensity --serial CT scans, no acute process --seen and evaluated by neurosurgery, chronic finding, no intervention Prostate cancer --follows with Elva Sanchez, urologist --on hormone therapy, stable Arthritis --on daily low-dose prednisone FEN Fluids: PO intake adequate Electrolytes: replete as indicated Nutrition: diabetic low sodium DVT prophylaxis: on Eliquis Physical therapy Dispo: continues to require inpatient care. Full code. Visit type - Emergency Visit Emergency Visit: Yes ED Registration Date: 06/12/18 Care time: The patient presented to the Emergency Department on the above date and was hospitalized for further evaluation of their emergent condition. - New Patient This patient is new to me today: No - Critical Care Critical Care patient: No
[2018-06-18] MEDS: PANTOPRAZOLE 40 MG TABLET (FP) PO SCH (10:15)
[2018-06-18] MEDS: predniSONE 5 MG TABLET (UD) PO SCH (10:15)
[2018-06-18] MEDS: APIXABAN 2.5 MG TABLET PO SCH ×2 (10:15→21:31)
[2018-06-18] MEDS ORDERED: FUROSEMIDE 40 MG/4 ML INJECTABLE VIAL IVPUSH ONE (13:28)
--- NOTE | 2018-06-18 19:24 | PN ---
Progress Note, Physician - Current Medication List Current Medications: Active Medications Apixaban (Eliquis -) 2.5 mg PO BID [facility] Last Admin: 06/18/18 10:15 Dose: 2.5 mg Piperacillin Sod/Tazobactam (Sod 3.375 gm/ Dextrose) 50 mls @ 100 mls/hr IVPB Q8H [facility]; Protocol Last Admin: 06/18/18 15:25 Dose: 100 mls/hr Insulin Aspart (Novolog Vial) 0 units SQ ACHS [facility]; Protocol Last Admin: 06/18/18 16:47 Dose: 2 units Losartan Potassium (Cozaar -) 25 mg PO BID [facility] Last Admin: 06/14/18 21:36 Dose: Not Given Metoprolol Succinate (Toprol Xl -) 200 mg PO DAILY [facility] Last Admin: 06/18/18 10:15 Dose: 200 mg Pantoprazole Sodium (Protonix -) 40 mg PO DAILY [facility] Last Admin: 06/18/18 10:15 Dose: 40 mg Prednisone (Deltasone -) 2.5 mg PO DAILY [facility] Last Admin: 06/18/18 10:15 Dose: 2.5 mg Spironolactone (Aldactone -) 25 mg PO HS [facility] Last Admin: 06/13/18 21:28 Dose: 25 mg - Objective Vital Signs: Vital Signs Temperature 98.2 F 06/18/18 15:49 Pulse Rate 71 06/18/18 15:49 Respiratory Rate 20 06/18/18 15:49 Blood Pressure 103/72 06/18/18 15:49 O2 Sat by Pulse Oximetry (%) 95 06/18/18 15:49 Labs: CBC, BMP 06/17/18 07:40 06/17/18 07:40 INR, PTT INR 1.53 (0.82-1.09) H D 06/12/18 19:15
[2018-06-18] MEDS: LOSARTAN POTASSIUM 25 MG TABLET PO SCH (21:31)
[2018-06-18] MEDS: SPIRONOLACTONE 25 MG TABLET (FP) PO SCH (21:31)
[2018-06-19] MEDS ORDERED: DEXTROSE 5%-WATER - 50 ML IVPB ONE ×3 (06:52→22:20)
[2018-06-19] MEDS ORDERED: PIPERACILLIN/TAZOBACTAM 3.375 GM VIAL IVPB ONE ×3 (06:52→22:19)
[2018-06-19] MEDS ORDERED: INSULIN (NOVOLOG) ASPART 100 UNITS/ML 10ML VIAL ONE ×2 (06:52→11:32)
[2018-06-19] MEDS: PIPERACILLIN/TAZOB 3.375 GM 3.375 GM in DEXTROSE 5%-WATER - 50 ML IVPB SCH ×3 (06:53→22:20)
[2018-06-19] MEDS: INSULIN (NOVOLOG) ASPART 100 UNITS/ML 10ML VIAL SQ SCH ×5 (06:54→22:38)
[2018-06-19] MEDS: predniSONE 5 MG TABLET (UD) PO SCH (10:52)
[2018-06-19] MEDS: LOSARTAN POTASSIUM 25 MG TABLET PO SCH ×2 (10:52→22:19)
[2018-06-19] MEDS: APIXABAN 2.5 MG TABLET PO SCH ×2 (10:52→22:19)
[2018-06-19] MEDS: PANTOPRAZOLE 40 MG TABLET (FP) PO SCH (10:53)
--- NOTE | 2018-06-19 11:13 | PN ---
Progress Note, Physician History of Present Illness: Pt seen and examined. Chart reviewed, labs/imaging results noted. Pt is alert and afebrile today, has cough with deep inspiration but no distress. No diarrhea noted. No other specific complaints. - Current Medication List Current Medications: Active Medications Apixaban (Eliquis -) 2.5 mg PO BID [facility] Last Admin: 06/19/18 10:52 Dose: 2.5 mg Piperacillin Sod/Tazobactam (Sod 3.375 gm/ Dextrose) 50 mls @ 100 mls/hr IVPB Q8H [facility]; Protocol Last Admin: 06/19/18 06:53 Dose: 100 mls/hr Insulin Aspart (Novolog Vial) 0 units SQ ACHS [facility]; Protocol Last Admin: 06/19/18 06:54 Dose: 2 units Losartan Potassium (Cozaar -) 25 mg PO BID [facility] Last Admin: 06/19/18 10:52 Dose: 25 mg Metoprolol Succinate (Toprol Xl -) 200 mg PO DAILY [facility] Last Admin: 06/19/18 10:53 Dose: 200 mg Pantoprazole Sodium (Protonix -) 40 mg PO DAILY [facility] Last Admin: 06/19/18 10:53 Dose: 40 mg Prednisone (Deltasone -) 2.5 mg PO DAILY [facility] Last Admin: 06/19/18 10:52 Dose: 2.5 mg Spironolactone (Aldactone -) 25 mg PO HS [facility] Last Admin: 06/18/18 21:31 Dose: 25 mg - Objective Vital Signs: Vital Signs Temperature 98.4 F 06/19/18 09:00 Pulse Rate 82 06/19/18 09:00 Respiratory Rate 16 06/19/18 09:00 Blood Pressure 109/55 L 06/19/18 09:00 O2 Sat by Pulse Oximetry (%) 94 L 06/19/18 09:00 Constitutional: Yes: No Distress Cardiovascular: Yes: Regular Rate and Rhythm Respiratory: Yes: CTA Bilaterally Gastrointestinal: Yes: Normal Bowel Sounds, Soft Genitourinary: Yes: WNL Extremities: Yes: WNL Neurological: Yes: Alert Labs: CBC, BMP 06/17/18 07:40 06/17/18 07:40 INR, PTT INR 1.53 (0.82-1.09) H D 06/12/18 19:15 Microbiology 06/12/18 19:00 Blood - Peripheral Venous Blood Culture - Final NO GROWTH AFTER 5 DAYS INCUBATION 06/12/18 19:15 Blood - Peripheral Venous Blood Culture - Final NO GROWTH AFTER 5 DAYS INCUBATION 06/15/18 18:30 Stool Clostridioides difficile Antigen - Final 06/15/18 18:30 Stool Clostridioides difficile Toxin Assay - Final 06/13/18 08:50 Sputum - Expectorated Gram Stain - Final 06/13/18 08:50 Sputum - Expectorated Sputum Culture - Final Pseudomonas Aeruginosa 06/14/18 09:30 Nares - Left Nares MRSA Screen - Final NO MRSA ISOLATED 06/14/18 08:00 Nares - Right Nares MRSA Screen - Final NO MRSA ISOLATED 06/12/18 18:45 Urine - Urine Clean Catch Urine Culture - Final NO GROWTH OBTAINED - ....Imaging Chest X-ray: Report Reviewed Cat Scan: Report Reviewed Problem List - Problems (1) Diastolic dysfunction without heart failure Code(s): I51.89 - OTHER ILL-DEFINED HEART DISEASES (2) Hypertensive heart disease Code(s): I11.9 - HYPERTENSIVE HEART DISEASE WITHOUT HEART FAILURE Qualifiers: Heart failure presence: without heart failure Qualified Code(s): I11.9 - Hypertensive heart disease without heart failure (3) Pacemaker Code(s): Z95.0 - PRESENCE OF CARDIAC PACEMAKER (4) Persistent atrial fibrillation Code(s): I48.1 - PERSISTENT ATRIAL FIBRILLATION (5) Pseudomonas pneumonia Code(s): J15.1 - PNEUMONIA DUE TO PSEUDOMONAS (6) Sepsis Code(s): A41.9 - SEPSIS, UNSPECIFIED ORGANISM Qualifiers: Sepsis type: sepsis due to unspecified organism Qualified Code(s): A41.9 - Sepsis, unspecified organism Assessment/Plan Pseudomonas PNA s/p Sepsis AFIB CAD CHF s/p PPM DM HTN -- Pt afebrile, without distress -- sputum culture isolate noted, Pseudomonas intermediately sensitive to Levaquin -- continue Zosyn -- continue monitor
--- NOTE | 2018-06-19 12:48 | PN ---
Physical Exam: SUBJECTIVE: Patient seen and examined oob to chair. Agitated, yelling at nurses , uncooperative with medical interventions. OBJECTIVE: Vital Signs Period Temp Pulse Resp BP Sys/Jorgensen Pulse Ox Last 24 Hr 97.6 F-98.5 F 71-86 16-20 100-131/53-74 94-96 GENERAL: The patient is awake, alert. Agitated. LUNGS: Mild wheezing HEART: Irregular S1, S2 ABDOMEN: Soft, nontender, nondistended, normoactive bowel sounds, no guarding, no rebound, no hepatosplenomegaly, no masses. LOWER EXTREMITIES: bilateral edema, compression stockings NEUROLOGICAL: Cranial nerves II through XII grossly intact. Speech is clear Laboratory Results - last 24 hr 06/18/18 06/18/18 06/19/18 16:39 21:50 06:31 POC Glucometer 163 139 152 06/19/18 11:24 POC Glucometer 165 Active Medications Generic Name Dose Route Start Last Admin Trade Name Freq PRN Reason Stop Dose Admin Apixaban 2.5 mg 06/13/18 22:00 06/19/18 10:52 Eliquis - PO 2.5 mg BID BAILEE Administration Piperacillin Sod/Tazobactam 50 mls @ 100 mls/hr 06/15/18 15:00 06/19/18 06:53 Sod 3.375 gm/ Dextrose IVPB 100 mls/hr Q8H BAILEE Administration Protocol Insulin Aspart 0 units 06/14/18 11:00 06/19/18 11:34 Novolog Vial SQ 2 units ACHS BAILEE Administration Protocol Losartan Potassium 25 mg 06/13/18 10:00 06/19/18 10:52 Cozaar - PO 25 mg BID BAILEE Administration Metoprolol Succinate 200 mg 06/14/18 10:00 06/19/18 10:53 Toprol Xl - PO 200 mg DAILY BAILEE Administration Pantoprazole Sodium 40 mg 06/13/18 10:00 06/19/18 10:53 Protonix - PO 40 mg DAILY BAILEE Administration Prednisone 2.5 mg 06/13/18 10:00 06/19/18 10:52 Deltasone - PO 2.5 mg DAILY BAILEE Administration Spironolactone 25 mg 06/13/18 22:00 06/18/18 21:31 Aldactone - PO 25 mg HS BAILEE Administration ASSESSMENT/PLAN: 87 year-old male with a PMH significant for CAD s/p [place] s/p PPM (05/2016), atrial fibrillation on Eliquis, CVA (02/2013), peripheral vascular disease, Type II NIDDM, arthritis, and prostate cancer (2015) s/p radiation therapy on hormone therapy. Admitted for severe sepsis. Pseudomonas pneumonia post sepsis Lactic acidosis, resolved --sputum culture (+) psuedomonas sensitive to Zosyn, will continue (day #5) --pulmonary congestion on yesterday's CXR, gave Lasix IV 40mg x 1; today's CXR improved, gave another Lasix IVP 40mg; tomorrow switch to PO Coronary artery disease s/p PPM --spoke with regular health care coach, Elva Gabriel [phone]; no previous h/o heart failure; on diuretics for PVD --not on ASA or statin --06/14 Echo: mild concentric LVH, LV normal, EF 55-60%; RV not well-visualized ; LAE; moderate MR; mild TR; mild AI; trace to mild PI --continue losartan, ToprolXL Atrial fibrillation --contine ToprolXL for rate control --continue Eliquis Peripheral vascular disease --chronic edema --continue spironolactone, resumed lasix (as above) --compression stockings Type II NIDDM --A1C 6.8 --Novolog sliding scale coverage Left frontal lobe hyperdensity --serial CT scans, no acute process --seen and evaluated by neurosurgery, chronic finding, no intervention Prostate cancer --follows with Elva Sanchez, urologist --on hormone therapy, stable Arthritis --on daily low-dose prednisone Agitation --distraction unsuccessful, physically aggressive; haldol contraindicated, QTc prolonged; ativan 0.5mg IVP x 1; close monitoring FEN Fluids: PO intake adequate Electrolytes: replete as indicated Nutrition: diabetic low sodium DVT prophylaxis: on Eliquis Physical therapy Dispo: continues to require inpatient care. Full code. Visit type - Emergency Visit Emergency Visit: Yes ED Registration Date: 06/12/18 Care time: The patient presented to the Emergency Department on the above date and was hospitalized for further evaluation of their emergent condition. - New Patient This patient is new to me today: No - Critical Care Critical Care patient: No
[2018-06-19] MEDS ORDERED: FUROSEMIDE 40 MG/4 ML INJECTABLE VIAL IVPUSH ONE (13:17)
[2018-06-19] MEDS ORDERED: FUROSEMIDE 40 MG TABLET (FP) PO SCH (14:00)
[2018-06-19] MEDS: ACETAMINOPHEN 325 MG TABLET (FP) PO PRN (14:12)
[2018-06-19] MEDS ORDERED: LORazepam 2 MG/ML SDV VIAL ONE (14:41)
[2018-06-19] MEDS ORDERED: LORazepam 2 MG/ML SDV VIAL IVPUSH SCH (15:00)
[2018-06-19] MEDS ORDERED: ALBUTEROL SO4 2.5/IPRATROPIUM 0.5 INH SOL 3 ML VIAL.NEB. NEB ONE ×2 (16:58→17:00)
[2018-06-19] MEDS: ALBUTEROL SO4 2.5/IPRATROPIUM 0.5 INH SOL 3 ML VIAL.NEB. NEB SCH (20:25)
[2018-06-19] MEDS: SPIRONOLACTONE 25 MG TABLET (FP) PO SCH (22:19)
[2018-06-20] MEDS ORDERED: DEXTROSE 5%-WATER - 50 ML IVPB ONE ×3 (06:09→21:38)
[2018-06-20] MEDS ORDERED: PIPERACILLIN/TAZOBACTAM 3.375 GM VIAL IVPB ONE ×3 (06:09→21:37)
[2018-06-20] MEDS: ACETAMINOPHEN 325 MG TABLET (FP) PO PRN ×2 (06:11→14:31)
[2018-06-20] MEDS: FUROSEMIDE 40 MG TABLET (FP) PO SCH ×2 (06:12→14:32)
[2018-06-20] MEDS: PIPERACILLIN/TAZOB 3.375 GM 3.375 GM in DEXTROSE 5%-WATER - 50 ML IVPB SCH ×3 (06:12→23:00)
[2018-06-20] MEDS: INSULIN (NOVOLOG) ASPART 100 UNITS/ML 10ML VIAL SQ SCH ×4 (06:59→21:17)
[2018-06-20] MEDS: ALBUTEROL SO4 2.5/IPRATROPIUM 0.5 INH SOL 3 ML VIAL.NEB. NEB SCH ×3 (09:00→20:15)
[2018-06-20 09:11] LABS: BASO % 0.1 % (0-2.0); EOS % 0.6 % (0-4.5); WHITE BLOOD COUNT 11.3 K/mm3 (4.0-10.8)
[2018-06-20 09:16] LABS: HEMATOCRIT 38.5 % (35.4-49); HEMOGLOBIN 13.2 GM/dl (11.7-16.9); LYMPH % 5.9 % (8-40); MCH 32.6 pg (25.7-33.7); MCHC 34.3 g/dl (32.0-35.9); MEAN CELL VOLUME 95.1 fl (80-96); MEAN PLT VOLUME 9.7 fl (7.5-11.1); MONO % 10.9 % (3.8-10.2); NEUT % 82.5 % (42.8-82.8); RBC 4.05 M/mm3 (4.00-5.60); RDW 12.1 % (11.9-15.9)
[2018-06-20 09:26] LABS: ALBUMIN 2.9 g/dl (3.4-5.0); BILIRUBIN,TOTAL 1.5 mg/dl (0.2-1); CALCIUM 8.5 mg/dl (8.5-10); CREATININE 0.7 mg/dl (0.55-1.3); MAGNESIUM 1.6 mg/dL (1.8-2.4); POTASSIUM 3.4 mmol/L (3.5-5.1); TOT PROT 5.6 g/dl (6.4-8.2)
--- NOTE | 2018-06-20 09:27 | PN ---
Physical Exam: SUBJECTIVE: Patient seen and examined. Remains confused but no agitation. OBJECTIVE: Vital Signs Period Temp Pulse Resp BP Sys/Jorgensen Pulse Ox Last 24 Hr 97.8 F-100.3 F 84-112 20-24 90-118/57-82 94-97 GENERAL: The patient is awake, alert,responsive but remains confused, no acute distress. HEAD: Normal with no signs of trauma. EYES: PERRL, extraocular movements intact, sclera anicteric, conjunctiva clear. No ptosis. ENT: Ears normal, nares patent, oropharynx clear without exudates, moist mucous membranes. NECK: Trachea midline, full range of motion, supple. LUNGS: Expiratory wheeze , no accessory muscle use HEART:Irregular without murmur, rub or gallop. ABDOMEN: Soft, non-tender, nondistended, normative bowel sounds, no guarding, no rebound, no hepatosplenomegaly, no masses. EXTREMITIES: 2+ pulses, warm, well-perfused, no edema. NEUROLOGICAL: Cranial nerves II through XII grossly intact. Normal speech, gait not observed. PSYCH: Normal mood, normal affect. SKIN: Warm, dry,discoloration lower ext, + pulse,no edema,no rashes or lesions noted Laboratory Results - last 24 hr 06/17/18 06/19/18 06/19/18 09:22 11:24 16:38 WBC RBC Hgb Hct MCV MCH MCHC RDW Plt Count MPV Absolute Neuts (auto) Neutrophils % Lymphocytes % Monocytes % Eosinophils % Basophils % POC Glucometer 165 198 Stool O & P Wet [place] Permanent Slide Final report 06/19/18 06/20/18 06/20/18 22:33 06:57 07:30 WBC 11.3 H RBC 4.05 Hgb 13.2 Hct 38.5 MCV 95.1 MCH 32.6 MCHC 34.3 RDW 12.1 Plt Count 161 MPV 9.7 Absolute Neuts (auto) 9.3 Neutrophils % 82.5 Lymphocytes % 5.9 L Monocytes % 10.9 H Eosinophils % 0.6 D Basophils % 0.1 POC Glucometer 151 178 Stool O & P Wet [place] Permanent Slide Active Medications Generic Name Dose Route Start Last Admin Trade Name Freq PRN Reason Stop Dose Admin Acetaminophen 650 mg 06/19/18 13:51 06/20/18 06:11 Tylenol - PO 650 mg Q6H PRN Administration PAIN LEVEL 1-5 Albuterol/Ipratropium 1 amp 06/19/18 20:00 06/19/18 20:25 Duoneb - NEB 1 amp RTID BAILEE Administration Apixaban 2.5 mg 06/13/18 22:00 06/19/18 22:19 Eliquis - PO 2.5 mg BID BAILEE Administration Furosemide 40 mg 06/20/18 06:00 06/20/18 06:12 Lasix - PO 40 mg BID@0600,1400 BAILEE Administration Piperacillin Sod/Tazobactam 50 mls @ 100 mls/hr 06/15/18 15:00 06/20/18 06:12 Sod 3.375 gm/ Dextrose IVPB 100 mls/hr Q8H BAILEE Administration Protocol Insulin Aspart 0 units 06/14/18 11:00 06/20/18 06:59 Novolog Vial SQ 2 units ACHS BAILEE Administration Protocol Lorazepam 0.5 mg 06/19/18 15:00 06/19/18 14:47 Ativan Injection - IVPUSH 06/20/18 14:59 0.5 mg ONCE BAILEE Administration Losartan Potassium 25 mg 06/13/18 10:00 06/19/18 22:19 Cozaar - PO 25 mg BID BAILEE Administration Metoprolol Succinate 200 mg 06/14/18 10:00 06/19/18 10:53 Toprol Xl - PO 200 mg DAILY BAILEE Administration Pantoprazole Sodium 40 mg 06/13/18 10:00 06/19/18 10:53 Protonix - PO 40 mg DAILY BAILEE Administration Prednisone 2.5 mg 06/13/18 10:00 06/19/18 10:52 Deltasone - PO 2.5 mg DAILY BAILEE Administration Spironolactone 25 mg 06/13/18 22:00 06/19/18 22:19 Aldactone - PO 25 mg HS BAILEE Administration Reviewed CT chest and abdomen ASSESSMENT/PLAN: 87 year-old male with a PMH significant for CAD s/p MA s/p PPM (05/2016), atrial fibrillation on Eliquis, CVA (02/2013), peripheral vascular disease, Type II NIDDM, arthritis, and prostate cancer (2015) s/p radiation therapy on hormone therapy. Admitted for severe sepsis. *Pseudomonas pneumonia post sepsis -Lactic acidosis, resolved -sputum culture (+) psuedomonas sensitive to Zosyn, will continue (day #6) -CxR: pulmonary congestion - Rpt CXR- done, - s/p IV Lasix, will resume on Lasix PO - low grade fever and mild leukocytosis ( on steroid) - will cont on Neb tx - O2 2L N/C - BC neg - ID following, rec to repeat blood and Urine cultures - to continue Zosyn for now, will consider increase antimicrobial coverage if remains febrile or wbc increased *Coronary artery disease s/p PPM - as per pt student services counselor Elva Gabriel [phone]; no previous h/o heart failure; on diuretics for PVD -not on ASA or statin -06/14 Echo: mild concentric LVH, LV normal, EF 55-60%; RV not well-visualized; LAE; moderate MR; mild TR; mild AI; trace to mild PI -continue losartan, Toprol XL -checked BNP level 1161 *Atrial fibrillation- HR controlled -continue Toprol XL and Eliquis *Peripheral vascular disease -chronic edema - stable -continue spironolactone, resumed Lasix (as above) -compression stockings *Type II NIDDM -A1C 6.8 -Novolog sliding scale coverage - FS AC& HS *Left frontal lobe hyperdensity - serial CT scans, no acute process -seen and evaluated by neurosurgery, chronic finding, no intervention *Prostate cancer -follows with Elva Sanchez, urologist -on hormone therapy, stable *Arthritis -on daily low-dose predispose *Agitation- calm today - Haldol contraindicated, QTc prolonged -s/p ativan 0.5mg IVP x 1; close monitoring * Abnormal T. Bili- asymptomatic -other LFT's- WNL - will monitor FEN Fluids: PO intake adequate Electrolytes: replete as indicated Nutrition: diabetic low sodium Low K and Mg- replaced DVT prophylaxis: on Eliquis Physical therapy Dispo: continues to require inpatient care. Full code. Pt is from [place] Visit type - Emergency Visit Emergency Visit: Yes ED Registration Date: 06/12/18 Care time: The patient presented to the Emergency Department on the above date and was hospitalized for further evaluation of their emergent condition. - New Patient This patient is new to me today: Yes Date on this admission: 06/20/18 - Critical Care Critical Care patient: No
[2018-06-20] MEDS ORDERED: POTASSIUM CHLORIDE TABS 20 MEQ TABLET.ER (FP) PO ONE (09:36)
[2018-06-20] MEDS: predniSONE 5 MG TABLET (UD) PO SCH (09:49)
[2018-06-20] MEDS: PANTOPRAZOLE 40 MG TABLET (FP) PO SCH (09:49)
[2018-06-20] MEDS: APIXABAN 2.5 MG TABLET PO SCH ×2 (09:49→21:15)
[2018-06-20] MEDS: LOSARTAN POTASSIUM 25 MG TABLET PO SCH ×2 (09:49→21:15)
--- NOTE | 2018-06-20 11:57 | PN ---
Progress Note, Physician History of Present Illness: Pt is easily arousable and responsive, without acute distress. Temp of 100.3 recently noted. No respiratory distress/cough at this time. Denies dysuria or abdominal pain, no nausea/vomiting/diarrhea reported. - Current Medication List Current Medications: Active Medications Acetaminophen (Tylenol -) 650 mg PO Q6H PRN PRN Reason: PAIN LEVEL 1-5 Last Admin: 06/20/18 06:11 Dose: 650 mg Albuterol/Ipratropium (Duoneb -) 1 amp NEB RTID [facility] Last Admin: 06/20/18 09:00 Dose: 1 amp Apixaban (Eliquis -) 2.5 mg PO BID [facility] Last Admin: 06/20/18 09:49 Dose: 2.5 mg Furosemide (Lasix -) 40 mg PO BID@0600,1400 [facility] Last Admin: 06/20/18 06:12 Dose: 40 mg Piperacillin Sod/Tazobactam (Sod 3.375 gm/ Dextrose) 50 mls @ 100 mls/hr IVPB Q8H [facility]; Protocol Last Admin: 06/20/18 06:12 Dose: 100 mls/hr Insulin Aspart (Novolog Vial) 0 units SQ ACHS [facility]; Protocol Last Admin: 06/20/18 06:59 Dose: 2 units Lorazepam (Ativan Injection -) 0.5 mg IVPUSH ONCE [facility] Stop: 06/20/18 14:59 Last Admin: 06/19/18 14:47 Dose: 0.5 mg Losartan Potassium (Cozaar -) 25 mg PO BID [facility] Last Admin: 06/20/18 09:49 Dose: 25 mg Magnesium Oxide (Mag-Ox -) 400 mg PO BID [facility] Metoprolol Succinate (Toprol Xl -) 200 mg PO DAILY [facility] Last Admin: 06/20/18 09:49 Dose: 200 mg Pantoprazole Sodium (Protonix -) 40 mg PO DAILY [facility] Last Admin: 06/20/18 09:49 Dose: 40 mg Prednisone (Deltasone -) 2.5 mg PO DAILY [facility] Last Admin: 06/20/18 09:49 Dose: 2.5 mg Spironolactone (Aldactone -) 25 mg PO HS [facility] Last Admin: 06/19/18 22:19 Dose: 25 mg - Objective Vital Signs: Vital Signs Temperature 98.2 F 06/20/18 09:59 Pulse Rate 82 06/20/18 09:59 Respiratory Rate 18 06/20/18 09:59 Blood Pressure 126/67 06/20/18 09:59 O2 Sat by Pulse Oximetry (%) 95 06/20/18 09:00 Constitutional: Yes: No Distress, Calm Eyes: Yes: Conjunctiva Clear Cardiovascular: Yes: Regular Rate and Rhythm Respiratory: Yes: Other (poor inspiratory effort, no audible rhonchi/wheeze) Gastrointestinal: Yes: Normal Bowel Sounds, Soft Integumentary: Yes: WNL Neurological: Yes: Alert, Weakness Labs: CBC, BMP 06/20/18 07:30 06/20/18 07:30 INR, PTT INR 1.53 (0.82-1.09) H D 06/12/18 19:15 Microbiology 06/12/18 19:00 Blood - Peripheral Venous Blood Culture - Final NO GROWTH AFTER 5 DAYS INCUBATION 06/12/18 19:15 Blood - Peripheral Venous Blood Culture - Final NO GROWTH AFTER 5 DAYS INCUBATION 06/15/18 18:30 Stool Clostridioides difficile Antigen - Final 06/15/18 18:30 Stool Clostridioides difficile Toxin Assay - Final 06/13/18 08:50 Sputum - Expectorated Gram Stain - Final 06/13/18 08:50 Sputum - Expectorated Sputum Culture - Final Pseudomonas Aeruginosa 06/14/18 09:30 Nares - Left Nares MRSA Screen - Final NO MRSA ISOLATED 06/14/18 08:00 Nares - Right Nares MRSA Screen - Final NO MRSA ISOLATED 06/12/18 18:45 Urine - Urine Clean Catch Urine Culture - Final NO GROWTH OBTAINED - ....Imaging Chest X-ray: Report Reviewed (improvement from previous) Problem List - Problems (1) Diastolic dysfunction without heart failure Code(s): I51.89 - OTHER ILL-DEFINED HEART DISEASES (2) Hypertensive heart disease Code(s): I11.9 - HYPERTENSIVE HEART DISEASE WITHOUT HEART FAILURE Qualifiers: Heart failure presence: without heart failure Qualified Code(s): I11.9 - Hypertensive heart disease without heart failure (3) Pacemaker Code(s): Z95.0 - PRESENCE OF CARDIAC PACEMAKER (4) Persistent atrial fibrillation Code(s): I48.1 - PERSISTENT ATRIAL FIBRILLATION (5) Pseudomonas pneumonia Code(s): J15.1 - PNEUMONIA DUE TO PSEUDOMONAS (6) Sepsis Code(s): A41.9 - SEPSIS, UNSPECIFIED ORGANISM Qualifiers: Sepsis type: sepsis due to unspecified organism Qualified Code(s): A41.9 - Sepsis, unspecified organism Assessment/Plan Pseudomonas PNA s/p Sepsis AFIB CAD CHF s/p PPM DM HTN -- Pt with low grade fever recently, currently afebrile. Mild wbc elevation. -- repeat blood/urine cultures -- continue Zosyn for now, will consider increase antimicrobial coverage if remains febrile or wbc increased -- continue monitor closely for now
[2018-06-20 12:21] LABS: N-TERMINAL BNP 1161.6 pg/ml (5-450)
[2018-06-20] MEDS: MAGNESIUM OXIDE 400 MG TABLET (FP) PO SCH ×2 (12:45→21:15)
[2018-06-20 13:22] LABS: PLATELET COUNT 161 K/MM3 (134-434)
--- NOTE | 2018-06-20 16:46 | PN ---
Progress Note, Physician Chief Complaint: Pt in hallway, lying in bed. Confused; did not know where he was (RN notes pt ""); he was surprised he was in a hospital. 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 History of Present Illness: The patient is an 87 year old white male, from [facility], with a significant past medical history of CAD, diastolic CHF, Stroke, Prostate Ca, Pneumonia, afib, pacemaker, left knee replacement who presents to the emergency department with daughter for chills. As per daughter, she received a call that the patient was downstairs confused, weak, had chills, cough and abdominal pain. The daughter states that the patient was at his baseline yesterday. As per daughter, the patient fell in the bathroom and sprained his L wrist, however, he is still complaining of L wrist pain today in the ED. The patient denies chest pain, shortness of breath, headache or dizziness. The patient denies fever, nausea, vomit, diarrhea or constipation. The patient denies dysuria, frequency, urgency or hematuria. Allergies:NKDA. Shellfish derived Past surgical history: left knee replacement Social history: None reported - Current Medication List Current Medications: Active Medications Acetaminophen (Tylenol -) 650 mg PO Q6H PRN PRN Reason: PAIN LEVEL 1-5 Last Admin: 06/20/18 14:31 Dose: 650 mg Albuterol/Ipratropium (Duoneb -) 1 amp NEB RTID [facility] Last Admin: 06/20/18 14:32 Dose: 1 amp Apixaban (Eliquis -) 2.5 mg PO BID [facility] Last Admin: 06/20/18 09:49 Dose: 2.5 mg Furosemide (Lasix -) 40 mg PO BID@0600,1400 [facility] Last Admin: 06/20/18 14:32 Dose: 40 mg Piperacillin Sod/Tazobactam (Sod 3.375 gm/ Dextrose) 50 mls @ 100 mls/hr IVPB Q8H [facility]; Protocol Last Admin: 06/20/18 14:39 Dose: 100 mls/hr Insulin Aspart (Novolog Vial) 0 units SQ ACHS [facility]; Protocol Last Admin: 06/20/18 12:45 Dose: 2 units Losartan Potassium (Cozaar -) 25 mg PO BID [facility] Last Admin: 06/20/18 09:49 Dose: 25 mg Magnesium Oxide (Mag-Ox -) 400 mg PO BID [facility] Last Admin: 06/20/18 12:45 Dose: 400 mg Metoprolol Succinate (Toprol Xl -) 200 mg PO DAILY [facility] Last Admin: 06/20/18 09:49 Dose: 200 mg Pantoprazole Sodium (Protonix -) 40 mg PO DAILY [facility] Last Admin: 06/20/18 09:49 Dose: 40 mg Prednisone (Deltasone -) 2.5 mg PO DAILY [facility] Last Admin: 06/20/18 09:49 Dose: 2.5 mg Spironolactone (Aldactone -) 25 mg PO HS [facility] Last Admin: 06/19/18 22:19 Dose: 25 mg - Objective Vital Signs: Vital Signs Temperature 98.6 F 06/20/18 12:54 Pulse Rate 88 06/20/18 12:54 Respiratory Rate 18 06/20/18 12:54 Blood Pressure 93/71 06/20/18 12:54 O2 Sat by Pulse Oximetry (%) 95 06/20/18 09:00 Constitutional: Yes: Anxious Eyes: Yes: WNL HENT: Yes: WNL Neck: Yes: WNL Cardiovascular: Yes: S1, S2 Gastrointestinal: Yes: Soft Genitourinary: No: Anuria Musculoskeletal: Yes: Muscle Weakness Extremities: Yes: Cool Edema: No Peripheral Pulses WNL: Yes Integumentary: Yes: Erythema, Venous Stasis Changes Neurological: Yes: Confusion, Weakness Psychiatric: Yes: Other (hx dementia) Labs: CBC, BMP 06/20/18 07:30 06/20/18 07:30 INR, PTT INR 1.53 (0.82-1.09) H D 06/12/18 19:15 Abnormal Lab Results 06/20/18 06/20/18 06/20/18 07:30 07:30 11:00 WBC 11.3 H Lymphocytes % 5.9 L Monocytes % 10.9 H Potassium 3.4 L Carbon Dioxide 20 L Random Glucose 175 H Magnesium 1.6 L Total Bilirubin 1.5 H AST 13 L Alkaline Phosphatase 43 L B-Natriuretic Peptide 1161.6 H Total Protein 5.6 L Albumin 2.9 L HDL Cholesterol 39 L TSH 0.23 L - ....Imaging Chest X-ray: Image Reviewed (poor inspiratory effort makes comparison of conrgestion problematic) Problem List - Problems (1) Diastolic dysfunction without heart failure Assessment/Plan: ECHO: normal LVEF; moderate MR; mild AR, [place]; moderate TR and pulmonary HTN. On metoprolol ER, losartan, sprionolactone, and furosemide. No JVD; lying nearly flat comfortably. F/u BUN/Cr, electrolytes, Is and Os, daily weight. Code(s): I51.89 - OTHER ILL-DEFINED HEART DISEASES (2) Hypertensive heart disease Code(s): I11.9 - HYPERTENSIVE HEART DISEASE WITHOUT HEART FAILURE Qualifiers: Heart failure presence: without heart failure Qualified Code(s): I11.9 - Hypertensive heart disease without heart failure (3) Pacemaker Code(s): Z95.0 - PRESENCE OF CARDIAC PACEMAKER (4) Persistent atrial fibrillation Assessment/Plan: On metoprolol ER for HR control. On apixaban for anticoagulation. Keep all electrolytes WNL. Code(s): I48.1 - PERSISTENT ATRIAL FIBRILLATION (5) Sepsis Assessment/Plan: Pseudomonas PNA. Febrile early am; mild leukocytosis. On antibiotics (Zosyn). Maintain fluids. F/u cultures. Code(s): A41.9 - SEPSIS, UNSPECIFIED ORGANISM Qualifiers: Sepsis type: sepsis due to unspecified organism Qualified Code(s): A41.9 - Sepsis, unspecified organism (6) Cellulitis Code(s): L03.90 - CELLULITIS, UNSPECIFIED Qualifiers: Site of cellulitis: extremity Site of cellulitis of extremity: lower extremity Laterality: left Qualified Code(s): L03.116 - Cellulitis of left lower limb (7) PAD (peripheral artery disease) Code(s): I73.9 - PERIPHERAL VASCULAR DISEASE, UNSPECIFIED (8) Electrolyte abnormality Assessment/Plan: Replete K and Mg. F/u all electrolytes, including PO4. Code(s): E87.8 - OTH DISORDERS OF ELECTROLYTE AND FLUID BALANCE, NEC (9) Arthritis Code(s): M19.90 - UNSPECIFIED OSTEOARTHRITIS, UNSPECIFIED SITE
[2018-06-20 19:20] LABS: PHOSPHOROUS 3.4 mg/dL (2.5-4.9)
[2018-06-20] MEDS: SPIRONOLACTONE 25 MG TABLET (FP) PO SCH (21:15)
[2018-06-21] MEDS ORDERED: PIPERACILLIN/TAZOBACTAM 3.375 GM VIAL IVPB ONE (06:00)
[2018-06-21] MEDS ORDERED: DEXTROSE 5%-WATER - 50 ML IVPB ONE (06:00)
[2018-06-21] MEDS: PIPERACILLIN/TAZOB 3.375 GM 3.375 GM in DEXTROSE 5%-WATER - 50 ML IVPB SCH (06:24)
[2018-06-21] MEDS: FUROSEMIDE 40 MG TABLET (FP) PO SCH (06:24)
[2018-06-21] MEDS: INSULIN (NOVOLOG) ASPART 100 UNITS/ML 10ML VIAL SQ SCH (06:25)
[2018-06-21] MEDS: ALBUTEROL SO4 2.5/IPRATROPIUM 0.5 INH SOL 3 ML VIAL.NEB. NEB SCH (08:10)
[2018-06-21 08:44] LABS: ALBUMIN 2.6 g/dl (3.4-5.0); BILIRUBIN,TOTAL 0.9 mg/dl (0.2-1); CALCIUM 8.6 mg/dl (8.5-10); CREATININE 0.8 mg/dl (0.55-1.3); POTASSIUM 3.5 mmol/L (3.5-5.1); TOT PROT 5.7 g/dl (6.4-8.2)
[2018-06-21] MEDS: predniSONE 5 MG TABLET (UD) PO SCH (09:44)
[2018-06-21] MEDS: LOSARTAN POTASSIUM 25 MG TABLET PO SCH (09:45)
[2018-06-21] MEDS: MAGNESIUM OXIDE 400 MG TABLET (FP) PO SCH (09:45)
[2018-06-21] MEDS: APIXABAN 2.5 MG TABLET PO SCH (09:45)
[2018-06-21] MEDS: PANTOPRAZOLE 40 MG TABLET (FP) PO SCH (09:45)
[2018-06-21 09:52] VITALS: BP 108/56; PULSE 81; TEMP 98.2
[2018-06-21 10:13] LABS: BASO % 0.1 % (0-2.0); EOS % 2.7 % (0-4.5); HEMATOCRIT 36.8 % (35.4-49); HEMOGLOBIN 12.2 GM/dl (11.7-16.9); LYMPH % 9.7 % (8-40); MCH 31.8 pg (25.7-33.7); MCHC 33.1 g/dl (32.0-35.9); MEAN CELL VOLUME 96.1 fl (80-96); MEAN PLT VOLUME 12.9 fl (7.5-11.1); MONO % 8.9 % (3.8-10.2); NEUT % 78.6 % (42.8-82.8); PLATELET COUNT 176 K/MM3 (134-434); RBC 3.83 M/mm3 (4.00-5.60); RDW 12.5 % (11.9-15.9); WHITE BLOOD COUNT 8.6 K/mm3 (4.0-10.8)
[2018-06-21 10:16] LABS: PLATELET ESTIMATE ADEQUATE
--- NOTE | 2018-06-21 10:57 | DS ---
Physical Exam: SUBJECTIVE: Patient seen and examined oob to chair. OBJECTIVE: Vital Signs Period Temp Pulse Resp BP Sys/Jorgensen Pulse Ox Last 24 Hr 98 F-98.6 F 80-88 18-19 93-114/56-73 95-95 PHYSICAL EXAM GENERAL: The patient is awake, alert. LUNGS: Mild wheezing HEART: Irregular S1, S2 ABDOMEN: Soft, nontender, nondistended, normoactive bowel sounds, no guarding, no rebound, no hepatosplenomegaly, no masses. LOWER EXTREMITIES: bilateral edema, compression stockings NEUROLOGICAL: Cranial nerves II through XII grossly intact. Speech is clear Laboratory Results - last 24 hr 06/20/18 06/20/18 06/20/18 07:30 11:00 12:21 WBC RBC Hgb Hct MCV MCH MCHC RDW Plt Count 161 MPV Absolute Neuts (auto) Neutrophils % Lymphocytes % Monocytes % Eosinophils % Basophils % Platelet Estimate Platelet Comment Sodium Potassium Chloride Carbon Dioxide Anion Gap BUN Creatinine Est GFR (CKD-EPI)AfAm Est GFR (CKD-EPI)NonAf POC Glucometer 180 Random Glucose Calcium Phosphorus 3.4 Total Bilirubin AST ALT Alkaline Phosphatase B-Natriuretic Peptide 1161.6 H Total Protein Albumin Triglycerides 110 Cholesterol 142 Total LDL Cholesterol 94 HDL Cholesterol 39 L TSH 0.23 L 06/20/18 06/20/18 06/21/18 17:13 21:05 06:14 WBC RBC Hgb Hct MCV MCH MCHC RDW Plt Count MPV Absolute Neuts (auto) Neutrophils % Lymphocytes % Monocytes % Eosinophils % Basophils % Platelet Estimate Platelet Comment Sodium Potassium Chloride Carbon Dioxide Anion Gap BUN Creatinine Est GFR (CKD-EPI)AfAm Est GFR (CKD-EPI)NonAf POC Glucometer 188 142 144 Random Glucose Calcium Phosphorus Total Bilirubin AST ALT Alkaline Phosphatase B-Natriuretic Peptide Total Protein Albumin Triglycerides Cholesterol Total LDL Cholesterol HDL Cholesterol TSH 06/21/18 06/21/18 07:03 07:03 WBC 8.6 RBC 3.83 L Hgb 12.2 Hct 36.8 MCV 96.1 H MCH 31.8 MCHC 33.1 RDW 12.5 Plt Count 176 MPV 12.9 H D Absolute Neuts (auto) 6.8 Neutrophils % 78.6 Lymphocytes % 9.7 D Monocytes % 8.9 Eosinophils % 2.7 D Basophils % 0.1 Platelet Estimate Adequate Platelet Comment Few giant plts Sodium 139 Potassium 3.5 Chloride 106 Carbon Dioxide 20 L Anion Gap 13 BUN 16 Creatinine 0.8 Est GFR (CKD-EPI)AfAm 94.41 Est GFR (CKD-EPI)NonAf 81.46 POC Glucometer Random Glucose 155 H Calcium 8.6 Phosphorus Total Bilirubin 0.9 AST 13 L ALT 13 Alkaline Phosphatase 36 L B-Natriuretic Peptide Total Protein 5.7 L Albumin 2.6 L Triglycerides Cholesterol Total LDL Cholesterol HDL Cholesterol TSH HOSPITAL COURSE: Date of Admission:06/12/18 Date of Discharge: 06/21/18 87 year-old male with a PMH significant for CAD s/p TN s/p PPM (05/2016), atrial fibrillation on Eliquis, CVA (02/2013), peripheral vascular disease, Type II NIDDM, arthritis, and prostate cancer (2015) s/p radiation therapy on hormone therapy. Admitted for severe sepsis secondary to pseudomonas pneumonia. Pseudomonas pneumonia post sepsis Lactic acidosis, resolved -T102.1, p113, WBC 13.6k, lactic acid 2.9 on admission --sputum culture (+) psuedomonas sensitive to Zosyn, treated for 6 days Coronary artery disease s/p PPM --spoke with regular marker delivery, Elva Gabriel [phone]; no previous h/o heart failure; on diuretics for PVD --not on ASA or statin --06/14 Echo: mild concentric LVH, LV normal, EF 55-60%; RV not well-visualized ; LAE; moderate MR; mild TR; mild AI; trace to mild PI --continued losartan, ToprolXL Atrial fibrillation --continued ToprolXL for rate control --continued Eliquis Peripheral vascular disease --chronic edema --continued spironolactone, resumed lasix once sepsis resolved --compression stockings Type II NIDDM --A1C 6.8 --Novolog sliding scale coverage Left frontal lobe hyperdensity --serial CT scans, no acute process --seen and evaluated by neurosurgery, chronic finding, no intervention Prostate cancer --follows with Elva Sanchez, urologist --on hormone therapy, stable Arthritis --on daily low-dose prednisone Minutes to complete discharge: 35 Discharge Summary Reason For Visit: ABD PAIN,CHILLS Current Active Problems Arthritis (Acute) Diastolic dysfunction without heart failure (Acute) Electrolyte abnormality (Acute) Hypertensive heart disease (Acute) PAD (peripheral artery disease) (Acute) Pacemaker (Acute) Persistent atrial fibrillation (Acute) Pseudomonas pneumonia (Acute) SSS (sick sinus syndrome) (Acute) Sepsis (Acute) Condition: Improved - Instructions Diet, Activity, Other Instructions: You were treated for pseudomonas pneumonia during your hospital stay. You were treated with IV Zosyn, and you have completed the antibiotic course. Return to the emergency department for any new or worsening symptoms. Referrals: Freddy Gabriel [Non Staff, Medical] - Disposition: HOME - Home Medications Comprehensive Discharge Medication List: Ambulatory Orders Apixaban [Eliquis] 5 mg PO DAILY 09/05/16 Aspirin [ASA -] 81 mg PO DAILY 09/05/16 Cholecalciferol (Vitamin D3) [Vitamin D3] 2,000 unit PO DAILY 09/05/16 Furosemide [Lasix] 60 mg PO DAILY 09/05/16 Losartan Potassium 25 mg PO BID 09/05/16 Multivitamins [Multivit ([facility] Formulary)] 1 tab PO DAILY 09/05/16 metFORMIN HCL [Metformin HCl] 500 mg PO BID 09/05/16 Metoprolol Succinate 200 mg PO DAILY 06/12/18 Pantoprazole Sodium 40 mg PO DAILY 06/12/18 Spironolactone 25 mg PO DAILY 06/12/18 predniSONE [Deltasone -] 2.5 mg PO DAILY 06/12/18 This patient is new to me today: No Emergency Visit: Yes ED Registration Date: 06/12/18 Care time: The patient presented to the Emergency Department on the above date and was hospitalized for further evaluation of their emergent condition. Critical Care patient: No - Discharge Referral Referred to [facility] Med P.C.: No
== END 2018-06-21 11:31 | disposition home or self-care (01) | DRG 871 ==
LOC: FER 18:25 → FM/S 22:03
PROVIDERS: ADMIT Internal Medicine; ATTEND Nurse Practitioner Acute Care
DX: A41.9 Sepsis, unspecified organism (principal); J15.1 Pneumonia due to Pseudomonas; G92 Toxic encephalopathy; E87.2 Acidosis; I50.32 Chronic diastolic (congestive) heart failure; R65.20 Severe sepsis without septic shock; I48.91 Unspecified atrial fibrillation; E11.9 Type 2 diabetes mellitus without complications; I11.0 Hypertensive heart disease with heart failure; R09.02 Hypoxemia; E83.42 Hypomagnesemia; R45.1 Restlessness and agitation; R19.7 Diarrhea, unspecified; I25.10 Atherosclerotic heart disease of native coronary artery without angina pectoris; Z86.73 Personal history of transient ischemic attack (TIA), and cerebral infarction without residual deficits; Z85.46 Personal history of malignant neoplasm of prostate; Z95.0 Presence of cardiac pacemaker; Z96.652 Presence of left artificial knee joint; S63.502A Unspecified sprain of left wrist, initial encounter; W01.0XXA Fall on same level from slipping, tripping and stumbling without subsequent striking against object, initial encounter; Y93.89 Activity, other specified; Y92.091 Bathroom in other non-institutional residence as the place of occurrence of the external cause; Y99.8 Other external cause status; Z79.84 Long term (current) use of oral hypoglycemic drugs; I44.7 Left bundle-branch block, unspecified; F03.90 Unspecified dementia, unspecified severity, without behavioral disturbance, psychotic disturbance, mood disturbance, and anxiety; I34.0 Nonrheumatic mitral (valve) insufficiency; I73.9 Peripheral vascular disease, unspecified; I25.2 Old myocardial infarction; K57.30 Diverticulosis of large intestine without perforation or abscess without bleeding
CPT/HCPCS: 36415; 70450-TC; 71045-TC-FY; 71260-TC; 73110-TC-LT-FY; 73130-TC-LT-FY; 74177-TC; 80048; 80053; 80061; 81003; 82803; 82962; 83036; 83605; 83721; 83735; 83880; 84100; 84443; 84484; 85025; 85027; 85610; 85730; 87040; 87070; 87081; 87086; 87177; 87186; 87205; 87209; 87324; 87449; 93005; 93306-TC; 94640; 97116-GP; 97162-GP; 99285-25; J0131; J7030